=== PATIENT | female | born 1940 | race Caucasian/White ===

== ENCOUNTER → 2023-09-19 09:57 | Outpatient (REF) | payer MEDICARE, OTHER, SELFPAY | LOC: RCS 09:57 | PROVIDERS: ATTENDING PHYSICIAN Internal Medicine Cardiovascular Disease; FAMILY PHYSICIAN Student in an Organized Health Care Education/Training Program | DX: I35.1 Nonrheumatic aortic (valve) insufficiency (principal) | CPT/HCPCS: 93306 ==

== ENCOUNTER → 2024-02-25 16:50 | Outpatient (REF) | payer MEDICARE, OTHER, SELFPAY | LOC: WDC 16:50 | PROVIDERS: ATTENDING PHYSICIAN Obstetrics & Gynecology Gynecology; FAMILY PHYSICIAN Student in an Organized Health Care Education/Training Program | DX: Z12.31 Encounter for screening mammogram for malignant neoplasm of breast (principal) | CPT/HCPCS: 77063; 77067 ==

== ENCOUNTER 2024-09-07 04:55 | Inpatient (IN) | payer MEDICARE, OTHER, SELFPAY ==
[2024-09-06 21:23] VITALS: BP 111/73
[2024-09-06 22:00] LABS: Hematocrit 31.6 % (37.0-47.0); Hemoglobin 11.0 g/dL (12.0-16.0); Mean Corp Hgb Conc. 34.8 g/dL (33.0-37.0); Mean Corpuscular Volume 92.9 fL (81.0-99.0); Nucleated Red Blood Cells % 0 %; Platelet Count 362 10^3/uL (130-400); Red Cell Dist. Width 11.5 % (11.5-14.5)
[2024-09-06 22:16] LABS: ALT (SGPT) 21 U/L (0-35); AST (SGOT) 37 U/L (14-36); Albumin 3.2 g/dl (3.5-5.0); Alkaline Phosphatase 103 U/L (38-126); Blood Urea Nitrogen 25 mg/dl (7-17); Calcium 8.4 mg/dl (8.4-10.2); Carbon Dioxide 27 mmol/L (22-30); Chloride 96 mmol/L (98-107); Glucose 120 mg/dl (70-99); Lipase 76 U/L (23-300); Potassium 5.6 mmol/L (3.5-5.1); Sodium 125 mmol/L (135-145); Total Protein 5.9 g/dl (6.3-8.2); eGFR 40.80
[2024-09-06 22:28] LABS: Troponin I < 0.012 ng/ml
[2024-09-06 23:44] VITALS: BP 120/78
[2024-09-07] VITALS (15 sets, daily range): BP systolic 83–142; BP diastolic 61–82; BMI 26.1
[2024-09-07] MEDS: PEPCID 20 MG IV (00:50)
[2024-09-07] MEDS: NSS 1000 IV ×3 (00:50→22:16)
--- NOTE | 2024-09-07 01:13 | ED.GENMED ---
History of Present Illness
General
Chief Complaint: Abdominal Pain
Source: patient
Exam Limitations: none
Time Seen by Provider: 09/06/24 23:52
Nursing documentation reviewed up to this point in time: agreed with
History of Present Illness
History of Present Illness:
Patient is an 84-year-old female who presents to the emergency department with 3 weeks of abdominal discomfort. Patient states she has been dealing with vague upper abdominal pain as well as a bloating sensation over the past 3 weeks. She has had
very little appetite and has been eating/drinking very little. Patient states she feels that her abdomen is swollen. She was seen by her primary care provider who ordered a CT scan which was scheduled for tomorrow.
Patient states that earlier today she started to feel a heaviness in her left had a sharp pain in her left chest prompting visit to the emergency department
Patient denies any fever, chills, nausea, or vomiting. She denies any shortness of breath or dizziness.
Past History
Past History
ED Past Medical History: HTN and Hypercholesterolemia
ED Past Surgical History: None
Social History
Tobacco: Other
Drug: None
Personal:
Living: with family
Family History
Family History: Other (Nonsignificant)
Review of Systems
Review of Systems
Allergies reviewed?: Yes
All Other Systems: ROS reviewed and negative except as documented in HPI and ROS
Phy Exam
Physical Exam
Physical Exam:
Vitals: Patient's vital signs are stable. Afebrile
General: Patient is well appearing, no acute distress. Nontoxic appearing
Skin: Warm and dry, no rashes or lesions
Head: Normocephalic, atraumatic
Eyes: Sclera nonicteric.
Throat: Protecting airway
Neck: Normal ROM, no cervical spine tenderness, no meningismus
Cardiac: Regular rate and rhythm, no murmurs. No reproducible chest wall tenderness
Pulm: Normal respiratory effort, no wheezes, rales, rhonchi heard on exam
Abdomen: Mildly distended. Abdomen soft with mild discomfort in upper abdomen. No rebound tenderness or guarding focal tenderness McBurney's point. Negative Briones sign.
Extremities: No evidence of cyanosis or edema
Neuro: AAOx3. Grossly intact.
Psychiatric: Normal affect.
Course
Orders/Labs/Results
Orders:
Orders
09/06/24 21:26
Electrocardiogram (*1) Urgent
Reason for Study: Chest Pain
EKG- Treatment ONCE
09/06/24 21:50
Complete Blood Count/With Diff Urgent
Comprehensive Metabolic Panel Urgent
Lipase Urgent
Serum Osmolality Urgent
Troponin I Urgent
09/07/24 00:44
0.9% Sodium Chloride 1000 ml [Nss] 1,000 ml IV BOLUS
Famotidine [Pepcid] 20 mg IV NOW STA
09/07/24 00:45
Add On- LAB Urgent
Tests Added?: serum osmolality
CT Abd/pelvis W Iv Cont Urgent
Comment:
Reason For Exam: upper abdominal pain, bloating
CR Chest - 2 Views Urgent
Comment:
Reason For Exam: chest pain
09/07/24 00:46
Electrocardiogram (*1) Urgent
Reason for Study: Chest Pain
EKG- Treatment ONCE
09/07/24 00:54
Troponin I Urgent
09/07/24 02:15
Osmolality, Random Urine Urgent
Date Specimen was Collected: 09/07/24
Time Specimen was Collected: 02:12
Urinalysis Reflex To Culture Urgent
Date Specimen was Collected: 09/07/24
Time Specimen was Collected: 02:12
Urine Microscopic Reflex Cult Urgent
Urine Sodium Urgent
Date Specimen was Collected: 09/07/24
Time Specimen was Collected: 02:12
Abnormal Lab Results
09/06/24 09/07/24
21:50 02:15
RBC 3.40 L 10^6/uL
(4.20-5.40)
Hgb 11.0 L g/dL
(12.0-16.0)
Hct 31.6 L %
(37.0-47.0)
MCH 32.4 H pg
(27.0-31.0)
Absolute Lymphs (auto) 0.7 L 10^3/uL
(1.2-3.4)
Absolute Monos (auto) 0.7 H 10^3/uL
(0.1-0.6)
Neutrophils % 79.3 H %
(42.2-75.2)
Lymphocytes % 9.2 L %
(20.5-51.1)
Monocytes % 10.0 H %
(1.7-9.3)
Sodium 125 L mmol/L
(135-145)
Potassium 5.6 H mmol/L
(3.5-5.1)
Chloride 96 L mmol/L
(98-107)
BUN 25 H mg/dl
(7-17)
Creatinine 1.3 H mg/dL
(0.6-1.0)
Glucose 120 H mg/dl
(70-99)
Serum Osmolality 271 L mOsm/kg
(275-300)
AST 37 H U/L
(14-36)
Total Protein 5.9 L g/dl
(6.3-8.2)
Albumin 3.2 L g/dl
(3.5-5.0)
Urine Bacteria (Reflex) Few A
(Negative)
Urine Osmolality 278 L mOsm/kg
(300-900)
Urine Albumin (Reflex) 1+ A
(Neg - Trace)
09/06/24 21:50
09/06/24 21:50
Vital Signs
Initial and Last Documented VS:
Initial Vital Signs
Temp Pulse Resp BP Pulse Ox
99 F 90 20 111/73 95
09/06/24 21:23 09/06/24 21:23 09/06/24 21:23 09/06/24 21:23 09/06/24 21:23
Last Documented Vital Signs
Temp Pulse Resp BP Pulse Ox
99 F 105 18 128/78 95
09/06/24 21:23 09/07/24 02:00 09/07/24 02:11 09/07/24 02:00 09/07/24 02:45
MDM/Problems Addressed
Differential Diagnosis Includes:
Not limited to: Pancreatitis, gastritis, biliary colic, cholecystitis, malignancy, bowel obstruction, etc.
MDM/Problems Addressed:
84-year-old female presenting with 3 weeks of abdominal bloating and anorexia, now with chest pressure today. No fevers or vomiting. She does report very little p.o. intake over the past few weeks secondary to abdominal discomfort. No associated
shortness of breath. Vitals and physical exam as above. Labs obtained prior to my evaluation significant for mild anemia. Chemistry reveals acute hyponatremia with a sodium of 125 as well as hyperkalemia with a potassium of 5.6. Mild renal
insufficiency noted. Suspect likely secondary to poor p.o. intake test dehydration. Initial troponin undetectable. EKG reveals normal sinus rhythm without EKG changes consistent of acute hyperkalemia.
Patient with significant electrolyte imbalances likely secondary to dehydration/poor p.o. intake. Will give IV fluids. Will check sodium studies. Will trend troponin. Given abdominal discomfort�will obtain CT scan and reassess. Patient will
require admission.
Update: CT scan unfortunately shows findings consistent with peritoneal carcinomatosis. This likely explains abdominal discomfort and anorexia. No evidence of bowel obstruction. Unknown possible primary malignancy. She does have a history of
melanoma. Serial troponins negative x 2. Suspect chest pressure secondary to significant ascites in abdomen. Discussed with patient at length. Patient remain hemodynamically stable. She will require admission for further workup as well as
hydration/repletion of electrolytes.
Chronic conditions affecting care:
Hypertension
Acute Exacerbation and/or Progression of Chronic Illness:
N/A
*Radiology
Radiology exam reviewed: radiology read reviewed
*Pulse Oximetry
SaO2: 94
Oxygen Mode of Delivery: Room air
Patient hypoxic: no
*EKG
Interpreted by ED Provider?: Yes
EKG Intrepretation Date: 09/07/24
Interpretation: abnormal
Comparison EKG: changes noted
Heart Rate: 82
Rate: normal
Rhythm: sinus
[place]: normal axis
Interval: first degree heart block
QRS Pattern: low voltage
Ischemia: non-specific ST changes
*Soft Boarder Interpretation
Rate: normal
Interpretation: normal
Heart Rate: 92
Rhythm: sinus
*Critical Care Note
Total Time (30-74mins, 75-104mins- exclusive of procedures): Not Applicable
Patient Management
Discussion with other providers: Hospitalist and Radiologist (Case discussed with radiology)
Escalation/DeEscalation of care consider admission/obs:
Admit for electrolyte repletion, hydration, further workup of peritoneal carcinomatosis
ED Attending Note
-
Portions of this chart may have been created with voice recognition software.� Occasional wrong word or��sound alike� substitutions may have occurred due to the inherent limitations of voice recognition software.
Discharge Plan
Departure
Patient Disposition: Admit
Date of Disposition: 09/07/24
Time of Disposition: 03:38
Presentation/result/management discussed w/ accepting MD/DO: Hospitalist
Discharge Problem:
Acute hyponatremia, Hyperkalemia, Peritoneal carcinomatosis
Prescriptions:
No Action
tamsulosin 0.4 MG capsule
0.4 mg PO DAILY Qty: 7 0RF
tramadol 50 MG tablet
50 mg PO Q6HPRN PRN (Reason: Pain) Qty: 20 0RF
ondansetron 4 MG tablet,disintegrating
4 mg PO TIDPRN PRN (Reason: nausea) Qty: 12 0RF
Referrals:
Libertad Ho MD [Family Provider, Internal Medicine]
Interventions
Interventions:
*Risk Screen - Suicide Last Done: 09/06/24 21:23
*General Assessment Last Done: 09/06/24 21:23
*Neglect/Abuse Screening Last Done: 09/06/24 21:23
*ED- Fall Risk Assessment Last Done: 09/06/24 23:50
*ED COVID-19 Vaccine History Last Done: 09/06/24 23:50
TM-Ttdodn-Jwkmwxoaty Assessment Last Done: 09/06/24 23:50
Discharge Date and Time
Print Language: DANISH
[2024-09-07 01:38] LABS: Troponin I < 0.012 ng/ml
[2024-09-07 02:34] LABS: Urine Character Clear (Clear)
[2024-09-07 02:55] LABS: Urine Squamous Cell >30 /LPF (Few)
[2024-09-07 02:56] LABS: Urine Red Blood Cell None Seen /HPF (0-2)
--- NOTE | 2024-09-07 04:06 | HPS.HSE ---
Family Physician
-
Family Physician: Libertad Ho MD
Chief Complaint
-
Abdominal pain
History of Present Illness
This is a 84-year-old female with past medical history significant for hypertension, hyponatremia, hypokalemia, CKD 3, hyperlipidemia presenting to the emergency department with worsening abdominal pain over the last 3 weeks.
Patient reported that she has been doing fine up until about 3 weeks ago when after having a meal she suddenly have abdominal bloating and distention and she has not felt well since then. Symptoms has persisted up until the point today where she
could not take it anymore and she said coming to the emergency department. She denies vomiting. She denies diarrhea. She denies any fevers or chills. She denies any urinary symptoms. Patient denies pain with movement.
She reports that over the last several days she has had minimal p.o. intake. She has however continued to take antihypertensives including triamterene.
Patient reports remote history of skin melanoma which was found in the right upper extremity and left lower extremity. She had excision and clear borders. She has had routine follow-up showing no recurrence of disease. She denies any other prior
malignancy.
In the emergency department she was afebrile, blood pressure was 128/80 with a pulse of 100 and she was satting 95% on room air.
CBC was unremarkable. Electrolytes were notable for a sodium of 125, potassium of 5.6, BUN and creatinine were stable at 25 and 1.3 with a glucose of 120. LFTs were unremarkable. Urinalysis was negative. Urine osmolality was 278 with a urine
sodium of 30.
Exam ECG with sinus rhythm rate of [address] or T wave changes.
Findings compatible with peritoneal carcinomatosis, multiple peritoneal masses throughout the abdomen and pelvis, moderate amount of ascites, no bowel obstruction, no obstructive uropathy, trace right pleural effusion
Medical History
Past Medical History
Past Medical History: Reports Cancer (History of malignant melanoma), HTN, Hypercholesterolemia, Valvular Disease (Bicuspid aortic valve with valvular insufficiency,) and Other (Nephrolithiasis, history of hyponatremia, CKD stage IIIa)
Past Surgical History: Reports Orthopedic (Status post total right knee replacement, status post total left hip replacement, status post right hip replacement, status post left knee replacement) and Other (Hemorrhoidectomy)
Social History
Tobacco: Non-smoker
Alcohol: Occasional
Drug: None
Family History
Family History: Not pertinent
Allergies / Home Medications
Allergies reflects when Allergies were last updated in [facility].
Home Medications with original date entered in [facility]
Allergy/Medication List:
Allergies
Allergy/AdvReac Type Severity Reaction Status Date / Time
No Known Allergies Allergy Unverified 07/13/18 14:54
Home Medications
Simvastatin 20 MG 1 tablet in the evening Orally Once a day for 90 days Active
Losartan Potassium 100 MG 1 tablet Orally Once a Day for 90 days Nov, Active
Propranolol HCl 20 MG 1 tablet Orally Twice a day for 90 days Active
Valium 5 MG 1 tablet as needed Orally Once a day for 30 days May, Active
amLODIPine Besylate 2.5 MG 1 tablet Orally Once a day for 90 days Jul, Active
Triamterene 100 MG TAKE 1 CAPSULE BY MOUTH DAILY for 90 Active
Centrum Silver Ultra Womens NO SIG SUPPLIED Oral Active
Ezetimibe 10 MG 1 tablet Orally Once a Day for 90 days Active
Aspirin 81 81 MG 1 tablet Orally Every Other Day Active
Review of Systems
-
Constitutional: Reports No Symptoms
EENT: Reports No Symptoms
Respiratory: Reports No Symptoms
Cardiac: Reports No Symptoms
Abdomen/GI: Reports Abdominal Pain, Nausea and Vomiting
: Reports No Symptoms
Musculoskeletal: Reports No Symptoms
Skin: Reports No Symptoms
Neurological: Reports No Symptoms
Endocrine: Reports No Symptoms
Hematologic/Lymphatic: Reports No Symptoms
Psych: Reports No Symptoms
Physical Exam
Vital Signs
Vital Signs
Temp Pulse Resp BP Pulse Ox
99 F 105 18 128/78 95
09/06/24 21:23 09/07/24 02:00 09/07/24 02:11 09/07/24 02:00 09/07/24 02:45
Physical Exam
General: Well Developed, Well Nourished and No Apparent Distress
HEENT: NormoCephalic, Moist mucous membranes and Atraumatic
Respiratory: Clear
Cardiac: S1/S2 and Regular Rhythm; No Murmur or Rub
GI: Soft, Non Tender, Non Distended and Normal Bowel Sounds; No Organomegaly
Rectal: Deferred by Provider
Musculoskeletal: No Clubbing, No Cyanosis and No Edema
Skin: No Rash
Neuro: Nonfocal/grossly intact
Laboratory Results
-
09/06/24 21:50
09/06/24 21:50
Laboratory Results
Total Bilirubin 0.8 mg/dl (0.2-1.3) 09/06/24 21:50
AST 37 U/L (14-36) H 09/06/24 21:50
ALT 21 U/L (0-35) 09/06/24 21:50
Alkaline Phosphatase 103 U/L (38-126) 09/06/24 21:50
Troponin I < 0.012 ng/ml 09/07/24 00:54
Lipase 76 U/L (23-300) 09/06/24 21:50
Data Reviewed
-
CT Scan: Report Reviewed by me
Lab Data: Labs Reviewed by me
Old Records: Reviewed
Impression/Plan
-
IMPRESSION:
84-year-old female with past medical history of hypokalemia hypertension, SIADH, hyperlipidemia, remote history of skin melanoma, status post resection and no recurrence of disease over the last 10 years, last colonoscopy 3 year ago that was
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
PLAN:
Peritoneal carcinomatosis -multiple intra-abdominal lesions concerning for peritoneal carcinomatosis with moderate amount of ascites. No obvious mass effect. No small bowel obstruction. No urinary obstruction.
-admit to telemetry
- tissue sampling/biopsy of most accessible site: oncology consultation, IR consultation, given ascites will order diagnostic paracentesis with cytology for now
- markers with cea, ca19-9 ca 125, AFP
- npo for now
- IV fluids with NS, pain control and antiemetics
Hyponatremia - Multifactorial. Hx of SIADH, now with decreased po intake and ongoing use of triamterene. Urine studies c/w siadh but patient hx c/w hypovolemia
- s/p 1 L NS, continue IV NS at 100 ml/hr for now
- repeat Na in 6 hours
- free water restriction while npo to < 1 L / day
- orthostatics
- check cortisol given hyperkalemia
- nephrology consult
Hyperkalemia - On triamterene, dehydration
- hold triamterene
- IV fluids as above
- low K diet
HTN -
- continue her amlodipine, propranolol
- holding triamterene
- continue losartan
DVT PPX - lovenox sq
Code status - full code
[2024-09-07] MEDS: ROXICODONE 5 MG PO (05:48)
[2024-09-07 09:27] LABS: Hematocrit 29.9 % (37.0-47.0); Hemoglobin 10.2 g/dL (12.0-16.0); Mean Corp Hgb Conc. 34.1 g/dL (33.0-37.0); Mean Corpuscular Volume 92.9 fL (81.0-99.0); Platelet Count 305 10^3/uL (130-400); Red Cell Dist. Width 11.4 % (11.5-14.5)
--- NOTE | 2024-09-07 09:29 | CON.ONC ---
Consultation
-
Date Consultation Requested: 09/07/24
Date Consultation Performed: 09/07/24
Requesting Provider: Dr. Torres Villafana
Performing Provider: Dr. Jaz Dial
Reason for Consultation: peritoneal carcinomatosis
Impression
Impression
p/w ab pain and distention
peritoneal carcinomatosis, multiple peritoneal masses (largest 8 x 5 x 6 cm), ascites, small bilateral pleural effusion
pancreatic cyst
hyponatremia
CKD
normocytic anemia Hgb ~11g/dL
Plan
Plan
agree with consult IR for biopsy of peritoneal mass and diagnostic and therapeutic paracentesis
consider MRI abdomen to further evaluate pancreatic cyst
check tumor markers
eventual CT chest with IVC for staging vs OP PET
next steps based on cytology
Patient History
History of Present Illness
84yo F presented with abdominal pain. She reports increasing abdominal distention with associated discomfort and pain over the past 3 weeks. She denies any N/V/D/C, fever, or sick contacts. Her abdominal discomfort has affected her PO intake, which
has been very little over the past week due to early satiety. She denies any GI//or [employer] bleeding. Her initial work up showed WBC 7.3, Hgb 11, platelet count 362,000, Na 125, potassium 5.6, BUN 25, creatinine 1.3, calcium 8.4 with no significant
abnormalities in LFTs. CT ab/pelvis showed heterogeneous soft tissue masses throughout the abdomen and pelvis consistent with peritoneal metastasis, largest 8 x 5 x 6 cm, pancreatic cyst in the pancreatic head measuring 1.6 cm, and mild
abdominopelvic ascites. CXR showed b/l pleural effusions.
She is up to date with mammogram, last February 2024 that showed no evidence of malignancy. Her last colonoscopy was February 2021 with history of hyperplastic polyps. She has a history of melanoma in situ that was resected on her RUE and LLE. She
tells me that she had 'clear borders' on resection and no evidence of recurrence on subsequent dermatology follow up every 6 months.
Afebrile, no hypoxia or hypotension
Past-Medical/Surgical History
PMH osteopenia, HTN, CKD3, HLD, Bicuspid aortic valve with valvular insufficiency, nephrolithiasis, melanoma in situ
PSH R TKR, L TKR, L THR, R THR, hemorrhoidectomy
Social non-smoker, denies significant ETOH. Denies recreational drug use. Retired. Lives with
Family mother with metastatic melanoma in her 90s, father with prostate cancer
Patient Medication
�Medication �Instructions �Recorded �Confirmed �Last Taken �Type
ondansetron 4 mg disintegrating 4 mg PO TIDPRN PRN nausea #12 tabs 11/19/14 Unknown Rx
tablet
tamsulosin 0.4 mg capsule 0.4 mg PO DAILY #7 caps 11/19/14 Unknown Rx
tramadol 50 mg tablet 50 mg PO Q6HPRN PRN Pain #20 tabs 11/19/14 Unknown Rx
Active Medications
Generic Name Dose Route Start Last Admin
Trade Name Freq PRN Reason Stop Dose Admin
Acetaminophen 650 mg 09/07/24 08:24
Acetaminophen 325 Mg Tablet PO 10/05/24 08:23
Q4HPRN PRN
mild pain/MCKEON/temp> 100.4F
Amlodipine Besylate 2.5 mg 09/07/24 08:24
Amlodipine 2.5 Mg Tablet PO 10/05/24 08:23
DAILY LISA
Aspirin 81 mg 09/07/24 08:24
Aspirin 81 Mg (Enteric Coated) Tablet PO 10/05/24 08:23
DAILY LISA
Bisacodyl 10 mg 09/07/24 08:24
Bisacodyl 10 Mg Rectal Suppository RECTAL 10/05/24 08:23
[id number] PRN
constipation
Enoxaparin Sodium 40 mg 09/07/24 18:00
Enoxaparin Sodium 40 Mg/0.4 Ml Syringe SC 10/05/24 17:59
QPM LISA
Hydromorphone HCl 0.5 mg 09/07/24 08:24
Hydromorphone 0.5 Mg/0.5 Ml Syringe IV 09/21/24 08:23
Q4HPRN PRN
severe pain
Sodium Chloride 1,000 mls @ 100 mls/hr 09/07/24 08:24
Nss IV
.Q10H LISA
Losartan Potassium 100 mg 09/08/24 08:00
Losartan 100 Mg Tablet PO 10/06/24 07:59
DAILY LISA
Ondansetron HCl 4 mg 09/07/24 08:24
Ondansetron 4 Mg/2 Ml Vial IV 10/05/24 08:23
Q6HPRN PRN
nausea and vomiting
Oxycodone HCl 5 mg 09/07/24 05:39 09/07/24 05:48
Oxycodone 5 Mg Regular Release Tablet PO 09/21/24 05:38 5 mg
Q4HPRN PRN Administration
moderate pain
Propranolol HCl 20 mg 09/07/24 08:24
Propranolol 20 Mg Regular Release Tablet PO 10/05/24 08:23
BID LISA
Sodium Chloride 0 flush 09/07/24 09:00
Sodium Chloride 0.9% (Flush) Syringe IV 10/05/24 08:59
PER PROTOCOL LISA
Review of Systems
-
ROS is notable for HPI, otherwise negative
Physical Exam
-
General: No Apparent Distress
HEENT: Moist Mucous Membranes; Negative Jaundice
Cardiology: Normal Sinus Rhythm
Pulmonary: Clear
GI: Soft and Distended
Extremities: Pulses Present; Negative Edema
Neurology: Non Focal
Skin: Warm
Hematologic / Lymphatic: No Lymphadenopathy
Psych: Calm
Labs
Lab Results
WBC 7.0 10^3/uL (4.8-10.8) 09/07/24 09:17
RBC 3.22 10^6/uL (4.20-5.40) L 09/07/24 09:17
Hgb 10.2 g/dL (12.0-16.0) L 09/07/24 09:17
Hct 29.9 % (37.0-47.0) L 09/07/24 09:17
MCV 92.9 fL (81.0-99.0) 09/07/24 09:17
MCH 31.7 pg (27.0-31.0) H 09/07/24 09:17
MCHC 34.1 g/dL (33.0-37.0) 09/07/24 09:17
RDW 11.4 % (11.5-14.5) L 09/07/24 09:17
Plt Count 305 10^3/uL (130-400) 09/07/24 09:17
MPV 8.7 fL (7.4-10.4) 09/07/24 09:17
Abs Immat Gran (auto) 0.0 10^3/uL (0-0.05) 09/06/24 21:50
Absolute Neuts (auto) 5.8 10^3/uL (1.4-6.5) 09/06/24 21:50
Absolute Lymphs (auto) 0.7 10^3/uL (1.2-3.4) L 09/06/24 21:50
Absolute Monos (auto) 0.7 10^3/uL (0.1-0.6) H 09/06/24 21:50
Absolute Eos (auto) 0.1 10^3/uL (0-0.7) 09/06/24 21:50
Absolute Basos (auto) 0.0 10^3/uL (0-0.2) 09/06/24 21:50
Immature Gran % 0.3 % (0-0.5) 09/06/24 21:50
Neutrophils % 79.3 % (42.2-75.2) H 09/06/24 21:50
Lymphocytes % 9.2 % (20.5-51.1) L 09/06/24 21:50
Monocytes % 10.0 % (1.7-9.3) H 09/06/24 21:50
Eosinophils % 0.8 % (0-6) 09/06/24 21:50
Basophils % 0.4 % (0-2) 09/06/24 21:50
Creatinine 1.3 mg/dL (0.6-1.0) H 09/06/24 21:50
Vital Signs
Vital Signs
Temp Pulse Resp BP Pulse Ox
98.1 F 93 18 132/79 94
09/07/24 08:30 09/07/24 08:30 09/07/24 08:30 09/07/24 08:30 09/07/24 08:30
[2024-09-07 09:51] LABS: Blood Urea Nitrogen 20 mg/dl (7-17); Calcium 8.3 mg/dl (8.4-10.2); Carbon Dioxide 21 mmol/L (22-30); Chloride 101 mmol/L (98-107); Estimated Creatinine Clearance 33 ml/min; Glucose 114 mg/dl (70-99); Magnesium 2.2 mg/dl (1.6-2.3); Potassium 5.2 mmol/L (3.5-5.1); Sodium 128 mmol/L (135-145); eGFR 44.91
[2024-09-07] MEDS: ZOFRAN 4 MG IV ×2 (10:04→18:21)
[2024-09-07] MEDS: FLUSH (NSS) 1 FLUSH IV ×2 (10:04→18:21)
[2024-09-07] MEDS: ASPIR LOW (ENTERIC COATED) 81 MG PO (10:05)
[2024-09-07] MEDS: NORVASC 2.5 MG PO (10:05)
[2024-09-07] MEDS: INDERAL 20 MG PO ×2 (10:05→20:04)
--- NOTE | 2024-09-07 10:30 | PTCARENOTE ---
Received pt from ER via stretcher, accompanied by ER staff. Pt AAO x3, MALDONADO; weak, able to transfer to bed with minimal assistance. Fall prec initiated. VSS. Place don telemetry:NSR. On room air- pulse ox 94%, no SOB. Abd large/soft, pt c/o 'I
feel bloated', (+) mild nausea. NPO. Pt voided in BR upon arrival to unit. Afebrile; pale; skin intact. Oriented to [facility]. pt currently of funit for IR procedure. Will continue to monitor.
--- NOTE | 2024-09-07 11:22 | PTCARENOTE ---
Pt returned from IR s/p paracentesis via stretcher, accompanied by volunteer. Pt AAO x3, MALDONADO; able to transfer to bed with assistance x1. VSS. Rt lower abd bandaid D/I. Resting in bed at present. Will continue to monitor.
--- NOTE | 2024-09-07 11:43 | CM ---
Chart reviewed. Met with patient at bedside. Lives in 2 story home. First floor has bedroom and bathroom.Lives with who has memory deficits and requested resources to bring help into the home,i.e. home health aid. Has had outpatient PT in
the past post hip and knee replacements. Patient doesn't recall the name of the agency. NO DME at this time. She is the primary caregiver for .
PCP: Noemi Ho
Pharmacy: [facility]
Insurance: Medicare with [employer]
DRug plan: [facility]
Plan: Home. No needs at this time. Will follow for discharge needs. Provided Home caregiver resources for
--- NOTE | 2024-09-07 12:16 | W.PN.HOSP.TC ---
Today's Communication/Plan
-
Pending paracentesis.
Cytology.
Oncology consult
Assessment / Plan
Assessment / Plan
Impression:
84-year-old female with past medical history of hypokalemia hypertension, SIADH, hyperlipidemia, remote history of skin melanoma, status post resection and no recurrence of disease over the last 10 years, last colonoscopy 3 year ago that was
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
Assessment/plan:
Peritoneal carcinomatosis -multiple intra-abdominal lesions concerning for peritoneal carcinomatosis with moderate amount of ascites.
No obvious mass effect. No small bowel obstruction. No urinary obstruction.
-admited to telemetry
- tissue sampling/biopsy of most accessible site: oncology consultation, IR consultation,
ordered paracentesis with cytology for now
- tumer markers with cea, ca19-9 ca 125, AFP
- IV fluids with NS, pain control and antiemetics
Hyponatremia - Multifactorial. Hx of SIADH, now with decreased po intake and ongoing use of triamterene. Urine studies c/w siadh but patient hx c/w hypovolemia
- s/p 1 L NS, continue IV NS at 100 ml/hr for now
- repeat Na in 6 hours
- free water restriction while npo to < 1 L / day
- orthostatics
- check cortisol given hyperkalemia
- nephrology consulted
Hyperkalemia - On triamterene, dehydration
- hold triamterene
- IV fluids as above
- low K diet
HTN -
- continue her amlodipine, propranolol
- holding triamterene
- continue losartan
CODE STATUS: Full code
DVT prophylaxis: Lovenox
Diet: regular
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
Disposition: Pending paracentesis and fluid biopsy
Total time spent on today's encounter was 65 minutes which included time spent in counseling the patient/family regarding diagnosis and treatment plan as listed above, goals of care, and symptom management. Case was discussed with nursing staff,
specialists, and care coordinators/case management. All labs and imaging personally reviewed by me. Remainder the time spent in detailed review of previous records, lab data, imaging, and other medical provider documentation.
Anticipated Discharge: > 48 hours
Subjective/Interval History
-
Date of Service: September 07, 2024
Patient seen and examined at bedside, overall patient not feeling well, with abdominal discomfort and nausea.
Plan for paracentesis today, still pending tumor markers.
Objective Data
-
Labs:
Laboratory Results
09/07/24
09:17
WBC 7.0
Hgb 10.2 L
Hct 29.9 L
Plt Count 305
Sodium 128 L
Potassium 5.2 H
Chloride 101
Carbon Dioxide 21 L
BUN 20 H
Creatinine 1.2 H
Glucose 114 H
Calcium 8.3 L
Vital Signs:
Vital Signs
Temp Pulse Resp BP Pulse Ox
97.3 F 77 16 139/70 94
09/07/24 11:30 09/07/24 11:30 09/07/24 11:30 09/07/24 11:30 09/07/24 11:30
Physical Exam
-
General: Well Developed, Well Nourished, No Apparent Distress and Comfortable
HEENT: Normocephalic, Atraumatic, Moist Mucous Membranes, No Ptosis, PERRLA and Nose Appears Normal
Respiratory: Rales and Non Labored Respirations
Cardiac: Regular Rhythm and S1/S2
Breast: Deferred by me
GI: Soft, Normal Bowel Sounds, Tender and Distended
Genito-urinary: No Costovertebral Tender
Musculoskeletal: No Clubbing, No Cyanosis and No Edema
Skin: Warm
Neuro: Awake, Alert, Oriented, AO x 3 and No Motor Deficits
Psych: Calm
Data Reviewed
-
Diagnostic Radiology: Image personally visualized and interpreted and Report Reviewed by me
CT Scan: Image personally visualized and interpreted and Report Reviewed by me
Ultrasound: Image personally visualized and interpreted and Report Reviewed by me
MRI: Image personally visualized and interpreted and Report Reviewed by me
Medical Tests (Nuc Med, Echo etc): Image personally visualized and interpreted and Report Reviewed by me
Labs: Labs Reviewed by me
Old Records: Reviewed
--- NOTE | 2024-09-07 13:06 | W.CON.NEPH ---
Consultation
-
Date/Time Consultation Requested: September 06, 2024
Date/Time Consultation Performed: September 07, 2024 at 11 AM
Requesting Provider: Dr. Moralez
Performing Provider: Dr. Bautista
Reason for Consultation: Acute on chronic kidney disease and hyponatremia
Medical History
-
Chief Complaint: Acute on chronic kidney disease and hyponatremia
History of Present Illness:
84-year-old female with past medical history of hypokalemia hypertension, SIADH, hyperlipidemia, remote history of skin melanoma, status post resection and no recurrence of disease over the last 10 years, last colonoscopy 3 year ago that was
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
Consult for hyponatremia chronic at 128 as well as mild acute kidney injury
Past Medical History
Hypokalemia hypertension, SIADH, hyperlipidemia, remote history of skin melanoma, status post resection
Social History
Tobacco: Non-Smoker
Alcohol: None
Family History
Family History: Not Pertinent
Allergies / Home Medications
Allergy/AdvReac Type Severity Reaction Status Date / Time
No Known Allergies Allergy Unverified 07/13/18 14:54
�Medication �Instructions �Recorded �Confirmed �Type
ondansetron 4 mg disintegrating 4 mg PO TIDPRN PRN nausea #12 tabs 11/19/14 09/07/24 Rx
tablet
Amlodipine 2.5 mg PO DAILY 09/07/24 09/07/24 History
Centrum 1 tab PO DAILY 09/07/24 09/07/24 History
Estring 2 mg intrauterine [id number] 09/07/24 09/07/24 History
Inderal 20 mg PO BID 09/07/24 09/07/24 History
Zetia 10 mg PO DAILY 09/07/24 09/07/24 History
aspirin Q48H 09/07/24 History
losartan 100 mg PO DAILY 09/07/24 09/07/24 History
simvastatin 20 mg tablet 20 mg PO DAILY 09/07/24 09/07/24 History
triamterene 100 mg capsule 100 mg PO DAILY 09/07/24 09/07/24 History
(Dyrenium)
Review of Systems
-
No chest pain or shortness of breath decreased appetite
All other systems: Negative unless noted
Physical Exam
Vital Signs
Vital Signs
Temp Pulse Resp BP Pulse Ox
97.3 F 77 16 139/70 94
09/07/24 11:30 09/07/24 11:30 09/07/24 11:30 09/07/24 11:30 09/07/24 11:30
Lab Results
WBC 7.0 10^3/uL (4.8-10.8) 09/07/24 09:17
RBC 3.22 10^6/uL (4.20-5.40) L 09/07/24 09:17
Hgb 10.2 g/dL (12.0-16.0) L 09/07/24 09:17
Hct 29.9 % (37.0-47.0) L 09/07/24 09:17
Plt Count 305 10^3/uL (130-400) 09/07/24 09:17
Sodium 128 mmol/L (135-145) L 09/07/24 09:17
Potassium 5.2 mmol/L (3.5-5.1) H 09/07/24 09:17
Chloride 101 mmol/L (98-107) 09/07/24 09:17
Carbon Dioxide 21 mmol/L (22-30) L 09/07/24 09:17
BUN 20 mg/dl (7-17) H 09/07/24 09:17
Creatinine 1.2 mg/dL (0.6-1.0) H 09/07/24 09:17
eGFR 44.91 09/07/24 09:17
Glucose 114 mg/dl (70-99) H 09/07/24 09:17
Calcium 8.3 mg/dl (8.4-10.2) L 09/07/24 09:17
Albumin 3.2 g/dl (3.5-5.0) L 09/06/24 21:50
Physical Exam
General no acute distress
HEENT no cephalic atraumatic extraocular muscle intact no scleral icterus no JVD neck supple
lungs clear to auscultation bilateral
heart regular S1-S2 positive
abdomen soft nontender positive bowel sounds
extremities no edema pulses present bilateral
Neurologically nonfocal alert and oriented x 3
Skin no lesions no abrasions no petechiae
Psych normal affect no bizarre behavior
Data Reviewed
-
Radiology: Image Personally Visualized and interpreted
CT Scan: Image Personally Visualized and interpreted
Assessment/Plan
-
84-year-old female with past medical history of hypokalemia hypertension, SIADH, hyperlipidemia, remote history of skin melanoma, status post resection and no recurrence of disease over the last 10 years, last colonoscopy 3 year ago that was
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
Impression
Acute kidney injury presenting creatinine 1.3.
CKD 3A baseline previously followed with
Hyponatremia 125 on admission.
SIADH? Urine sodium 36 with a urine Osmo 278
peritoneal carcinomatosis, multiple peritoneal masses (largest 8 x 5 x 6 cm), ascites, small bilateral pleural effusion
Plan.
Continue normal saline
Monitor urine output
Increase p.o. intake solute
Pending biopsy peritoneal mass
Improving with volume
A.m. labs
[2024-09-07 13:47] LABS: Body Fluid Second Tech ASW
--- NOTE | 2024-09-07 16:45 | PTCARENOTE ---
Pt resting in bed at present. VSS. Telemetry:NSR. On room air- pulseox 93%. Pt on regular diet, currently taking only liquids d/t mild nausea. Voiding in BR without difficulty. IVF's NSS @ 100 ml/hr infusing via Lt forearm site without sx of
infiltration. Will continue to monitor.
[2024-09-07] MEDS: LOVENOX SC (17:37)
--- NOTE | 2024-09-07 17:41 | PTCARENOTE ---
Reviewed purpose of Lovenox in preventing blood clot formation; pt ambulatory in room, refuses Lovenox SC; Dr. Moralez notified.
--- NOTE | 2024-09-08 02:39 | DOWNTIME ---
There was a [employer] Downtime on 09/08/2024 from 0100 to 09/08/2024 at 0220. Downtime documentation of patient's care, including medication administrations, has been reconciled in the electronic record per guidelines. Refer to the
patient's paper chart under the miscellaneous tab to see printed paper medication records and downtime forms.
[2024-09-08 03:27] VITALS: BP 101/51
[2024-09-08 07:53] LABS: Hematocrit 25.4 % (37.0-47.0); Hemoglobin 8.6 g/dL (12.0-16.0); Mean Corp Hgb Conc. 33.9 g/dL (33.0-37.0); Mean Corpuscular Volume 93.7 fL (81.0-99.0); Platelet Count 295 10^3/uL (130-400); Red Cell Dist. Width 11.5 % (11.5-14.5)
[2024-09-08 07:54] VITALS: BP 125/73
[2024-09-08 08:11] LABS: Blood Urea Nitrogen 20 mg/dl (7-17); Calcium 7.7 mg/dl (8.4-10.2); Carbon Dioxide 22 mmol/L (22-30); Chloride 103 mmol/L (98-107); Estimated Creatinine Clearance 36 ml/min; Glucose 88 mg/dl (70-99); Potassium 4.9 mmol/L (3.5-5.1); Sodium 128 mmol/L (135-145); eGFR 49.86
[2024-09-08] MEDS: INDERAL 20 MG PO ×2 (08:12→20:19)
[2024-09-08] MEDS: COZAAR 100 MG PO (08:12)
[2024-09-08] MEDS: NORVASC 2.5 MG PO (08:12)
[2024-09-08] MEDS: ASPIR LOW (ENTERIC COATED) 81 MG PO (08:12)
--- NOTE | 2024-09-08 08:38 | W.PN.ONC2 ---
Today's Communication / Plan
-
follow for cytology
Impression
Impression
p/w ab pain and distention
peritoneal carcinomatosis, multiple peritoneal masses (largest 8 x 5 x 6 cm), ascites, small bilateral pleural effusion
pancreatic cyst
hyponatremia
CKD
normocytic anemia Hgb ~11g/dL
Plan
Plan
consider biopsy of peritoneal mass if paracentesis is non-diagnostic or if additional tissue is needed for specials
f/u tumor markers
eventual CT chest with IVC for staging vs OP PET
next steps based on cytology
Subjective/Objective
Subjective
no new complaints
improved pain and nausea s/p paracentesis yesterday
Vital Signs:
Vital Signs
Temp Pulse Resp BP Pulse Ox
97.9 F 83 16 125/73 94
09/08/24 07:54 09/08/24 07:54 09/08/24 07:54 09/08/24 07:54 09/08/24 07:54
Lab Results:
Laboratory Data
WBC 5.7 10^3/uL (4.8-10.8) 09/08/24 06:50
Hgb 8.6 g/dL (12.0-16.0) L 09/08/24 06:50
Plt Count 295 10^3/uL (130-400) 09/08/24 06:50
eGFR 49.86 09/08/24 06:50
Physical Exam
HEENT: Moist Mucous Membranes; No Jaundice
Cardiology: Normal Sinus Rhythm
GI: Soft and Distended
Extremities: Pulses Present; No Edema
Neuro: Non Focal
Orders
Orders
Orders From Last 24 Hours
09/08/24 06:50
Ferritin IN AM
[2024-09-08 08:40] LABS: CEA 1.55 ng/ml
[2024-09-08 08:46] LABS: Ferritin 193.0 ng/ml (11.1-264.0)
[2024-09-08] MEDS: MIRALAX 17 GRAMS PO (09:02)
[2024-09-08] MEDS: NSS 1000 IV (09:06)
[2024-09-08 11:05] LABS: AFP Male/Tumor Marker 7.87 ng/ml
[2024-09-08 11:17] VITALS: BP 111/53
[2024-09-08 12:32] LABS: CA 125 2270 U/mL (0-35)
--- NOTE | 2024-09-08 13:08 | W.PN.NEPH.PH ---
Today's Communication / Plan
-
Discontinue IV fluid
Assessment/Plan
-
84-year-old female with past medical history of hypokalemia hypertension, SIADH, hyperlipidemia, remote history of skin melanoma, status post resection and no recurrence of disease over the last 10 years, last colonoscopy 3 year ago that was
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
Impression
Acute kidney injury presenting creatinine 1.3.
CKD 3A baseline previously followed with
Hyponatremia 125 on admission.
SIADH? Urine sodium 36 with a urine Osmo 278
peritoneal carcinomatosis, multiple peritoneal masses (largest 8 x 5 x 6 cm), ascites, small bilateral pleural effusion
Plan.
Monitor urine output
Increase p.o. intake solute
Pending biopsy peritoneal mass
Status post paracentesis 850 cc
Discontinue IV fluids with increasing abdominal distention
Creatinine down to 1.1 sodium at 128
A.m. labs
-
-
Date of Service: September 08, 2024
CC / HPI / ROS
-
Chief Complaint:
History of Present Illness:
Acute kidney injury and hyponatremia with abdominal distention
Review of Systems:
Abdominal distention
No chest pain or shortness of breath
Labs
-
Labs:
WBC 5.7 10^3/uL (4.8-10.8) 09/08/24 06:50
RBC 2.71 10^6/uL (4.20-5.40) L 09/08/24 06:50
Hgb 8.6 g/dL (12.0-16.0) L 09/08/24 06:50
Hct 25.4 % (37.0-47.0) L 09/08/24 06:50
Plt Count 295 10^3/uL (130-400) 09/08/24 06:50
Sodium 128 mmol/L (135-145) L 09/08/24 06:50
Potassium 4.9 mmol/L (3.5-5.1) 09/08/24 06:50
Chloride 103 mmol/L (98-107) 09/08/24 06:50
Carbon Dioxide 22 mmol/L (22-30) 09/08/24 06:50
BUN 20 mg/dl (7-17) H 09/08/24 06:50
Creatinine 1.1 mg/dL (0.6-1.0) H 09/08/24 06:50
eGFR 49.86 09/08/24 06:50
Glucose 88 mg/dl (70-99) 09/08/24 06:50
Calcium 7.7 mg/dl (8.4-10.2) L 09/08/24 06:50
Albumin 3.2 g/dl (3.5-5.0) L 09/06/24 21:50
Physical Exam
-
Vital Signs:
Vital Signs
Temp Pulse Resp BP Pulse Ox
97.7 F 74 16 111/53 93
09/08/24 11:17 09/08/24 11:17 09/08/24 11:17 09/08/24 11:17 09/08/24 11:17
Respiratory:: Bilateral: Coarse
Lung Excursion:: Normal
Abdomen:: Distended
Bowel Sounds:: Decreased
Extremity Edema:: None: Bilateral:
[2024-09-08] MEDS: DULCOLAX 10 MG RECTAL (13:32)
--- NOTE | 2024-09-08 14:14 | W.PN.HOSP.TC ---
Today's Communication/Plan
-
Pending cytology result
Assessment / Plan
Assessment / Plan
Impression:
84-year-old female with past medical history of hypokalemia hypertension, SIADH, hyperlipidemia, remote history of skin melanoma, status post resection and no recurrence of disease over the last 10 years, last colonoscopy 3 year ago that was
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
Assessment/plan:
Peritoneal carcinomatosis -multiple intra-abdominal lesions concerning for peritoneal carcinomatosis with moderate amount of ascites.
No obvious mass effect. No small bowel obstruction. No urinary obstruction.
-admited to telemetry
- tissue sampling/biopsy of most accessible site: oncology consultation, IR consultation,
ordered paracentesis with cytology for now
- tumer markers with cea, ca19-9 ca 125, AFP
- IV fluids with NS, pain control and antiemetics
Hyponatremia - Multifactorial. Hx of SIADH, now with decreased po intake and ongoing use of triamterene. Urine studies c/w siadh but patient hx c/w hypovolemia
-Appreciate nephrology input
Hyperkalemia - On triamterene, dehydration
- hold triamterene
-Improved
- low K diet
HTN -
- continue her amlodipine, propranolol
- holding triamterene
- continue losartan
CODE STATUS: Full code
DVT prophylaxis: Lovenox
Diet: regular
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
Disposition: Pending paracentesis and fluid biopsy
Total time spent on today's encounter was 65 minutes which included time spent in counseling the patient/family regarding diagnosis and treatment plan as listed above, goals of care, and symptom management. Case was discussed with nursing staff,
specialists, and care coordinators/case management. All labs and imaging personally reviewed by me. Remainder the time spent in detailed review of previous records, lab data, imaging, and other medical provider documentation.
Anticipated Discharge: 24 - 48 hours
Subjective/Interval History
-
Date of Service: September 08, 2024
Patient seen and examined at bedside, denies any chest pain or shortness of breath, patient was eating in the morning with no abdominal pain, no nausea, no vomiting, was complaining of constipation.
Oxycodone discontinued, later in the day she had fullness and abdominal discomfort.
Objective Data
-
Labs:
Laboratory Results
09/08/24
06:50
WBC 5.7
Hgb 8.6 L
Hct 25.4 L
Plt Count 295
Sodium 128 L
Potassium 4.9
Chloride 103
Carbon Dioxide 22
BUN 20 H
Creatinine 1.1 H
Glucose 88
Calcium 7.7 L
Vital Signs:
Vital Signs
Temp Pulse Resp BP Pulse Ox
97.7 F 74 16 111/53 93
09/08/24 11:17 09/08/24 11:17 09/08/24 11:17 09/08/24 11:17 09/08/24 11:17
I&O
09/07/24 09/08/24 09/09/24
06:59 06:59 06:59
Intake Total 849 / 849
Balance 849 / 849
Physical Exam
-
General: Well Developed, Well Nourished, No Apparent Distress and Comfortable
HEENT: Normocephalic, Atraumatic, Moist Mucous Membranes, No Ptosis, PERRLA and Nose Appears Normal
Respiratory: Rales and Non Labored Respirations
Cardiac: Regular Rhythm and S1/S2
Breast: Deferred by me
GI: Soft, Normal Bowel Sounds, Tender and Distended
Genito-urinary: No Costovertebral Tender
Musculoskeletal: No Clubbing, No Cyanosis and No Edema
Skin: Warm
Neuro: Awake, Alert, Oriented, AO x 3 and No Motor Deficits
Psych: Calm
Data Reviewed
-
Diagnostic Radiology: Image personally visualized and interpreted and Report Reviewed by me
CT Scan: Image personally visualized and interpreted and Report Reviewed by me
Ultrasound: Image personally visualized and interpreted and Report Reviewed by me
MRI: Image personally visualized and interpreted and Report Reviewed by me
Medical Tests (Nuc Med, Echo etc): Image personally visualized and interpreted and Report Reviewed by me
Labs: Labs Reviewed by me
Old Records: Reviewed
[2024-09-08 15:14] VITALS: BP 121/58
[2024-09-08] MEDS: LOVENOX 40 MG SC (17:36)
[2024-09-08 19:55] VITALS: BP 135/69
[2024-09-08 23:49] VITALS: BP 114/63
[2024-09-09 03:40] VITALS: BP 112/60
[2024-09-09 07:20] VITALS: BP 127/70
--- NOTE | 2024-09-09 07:44 | W.PN.ONC2 ---
Today's Communication / Plan
-
As above, if cytology confirms primary peritoneal/ovarian cancer, discharge home with close outpatient follow-up.
If cytology nondiagnostic, please arrange for biopsy of peritoneal nodule with discharge shortly thereafter. At this point continued inpatient hospitalization is likely unnecessary particularly if she is try to get home to take care of her ailing
Impression
Impression
peritoneal carcinomatosis, multiple peritoneal masses (largest 8 x 5 x 6 cm), ascites, small bilateral pleural effusion
pancreatic cyst
hyponatremia
CKD
normocytic anemia Hgb ~11g/dL
Plan
Plan
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
Await cytology. Proceed with biopsy of peritoneal mass if cytology nondiagnostic.
Hopefully try to get this done today as patient is hoping to be discharged and I see no reason to keep her other than the diagnostic workup.
So far all other tumor markers are negative except CA19. [address] chest with IVC for staging vs OP PET
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
Dr. Youngblood on vacation this week but if patient discharged, schedule follow-up with [facility] medical oncology and we can coordinate follow-up with [facility] [employer] oncologist.
[facility] office aware that patient requires follow-up.
Subjective/Objective
Chief Complaint
ACS Oncology F/U
Subjective
Patient feels well and offers no complaints. She would like to go home as her (retired MD) has some memory loss / dementia and she feels like she is just getting weaker sitting here. Cytology report is still pending.
Vital Signs:
Vital Signs
Temp Pulse Resp BP Pulse Ox
98.2 F 79 16 112/60 94
09/09/24 03:40 09/09/24 03:40 09/09/24 03:40 09/09/24 03:40 09/09/24 03:40
Lab Results:
Laboratory Data
WBC 5.7 10^3/uL (4.8-10.8) 09/08/24 06:50
Hgb 8.6 g/dL (12.0-16.0) L 09/08/24 06:50
Plt Count 295 10^3/uL (130-400) 09/08/24 06:50
eGFR 49.86 09/08/24 06:50
Physical Exam
HEENT: No Jaundice
Cardiology: S1 and S2
Pulmonary: Clear
GI: Soft
Extremities: No C/C/E
[2024-09-09 07:58] LABS: Hematocrit 26.4 % (37.0-47.0); Hemoglobin 9.3 g/dL (12.0-16.0); Mean Corp Hgb Conc. 35.2 g/dL (33.0-37.0); Mean Corpuscular Volume 90.1 fL (81.0-99.0); Platelet Count 283 10^3/uL (130-400); Red Cell Dist. Width 11.5 % (11.5-14.5)
[2024-09-09] MEDS: COZAAR 100 MG PO (08:16)
[2024-09-09] MEDS: ASPIR LOW (ENTERIC COATED) 81 MG PO (08:16)
[2024-09-09] MEDS: INDERAL 20 MG PO (08:16)
[2024-09-09] MEDS: NORVASC 2.5 MG PO (08:16)
[2024-09-09 08:40] LABS: Blood Urea Nitrogen 22 mg/dl (7-17); Calcium 8.0 mg/dl (8.4-10.2); Carbon Dioxide 21 mmol/L (22-30); Chloride 102 mmol/L (98-107); Estimated Creatinine Clearance 40 ml/min; Glucose 102 mg/dl (70-99); Potassium 4.3 mmol/L (3.5-5.1); Sodium 127 mmol/L (135-145); eGFR 55.90
[2024-09-09 11:15] VITALS: BP 117/57
--- NOTE | 2024-09-09 14:36 | W.PN.NEPH.PH ---
Today's Communication / Plan
-
Samsca 7.5 mg p.o. x 1
Assessment/Plan
-
84-year-old female with past medical history of hypokalemia hypertension, SIADH, hyperlipidemia, remote history of skin melanoma, status post resection and no recurrence of disease over the last 10 years, last colonoscopy 3 year ago that was
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
Impression
Acute kidney injury presenting creatinine 1.3.
CKD 3A baseline previously followed with
Hyponatremia 125 on admission.
SIADH? Urine sodium 36 with a urine Osmo 278
peritoneal carcinomatosis, multiple peritoneal masses (largest 8 x 5 x 6 cm), ascites, small bilateral pleural effusion
Plan.
Hyponatremia worsening to 127
Will provide Samsca 7.5 mg p.o. x 1
Monitor urine output
Increase p.o. intake solute
Pending biopsy peritoneal mass
Status post paracentesis 850 cc
Discontinue IV fluids with increasing abdominal distention
Creatinine down to 1.0
A.m. labs
-
-
Date of Service: September 09, 2024
CC / HPI / ROS
-
Chief Complaint:
History of Present Illness:
Acute kidney injury and hyponatremia with abdominal distention
Creatinine down to 1
Sodium down to 127
Review of Systems:
Abdominal distention
No chest pain or shortness of breath
Labs
-
Labs:
WBC 6.0 10^3/uL (4.8-10.8) 09/09/24 07:31
RBC 2.93 10^6/uL (4.20-5.40) L 09/09/24 07:31
Hgb 9.3 g/dL (12.0-16.0) L 09/09/24 07:31
Hct 26.4 % (37.0-47.0) L 09/09/24 07:31
Plt Count 283 10^3/uL (130-400) 09/09/24 07:31
Sodium 127 mmol/L (135-145) L 09/09/24 07:31
Potassium 4.3 mmol/L (3.5-5.1) 09/09/24 07:31
Chloride 102 mmol/L (98-107) 09/09/24 07:31
Carbon Dioxide 21 mmol/L (22-30) L 09/09/24 07:31
BUN 22 mg/dl (7-17) H 09/09/24 07:31
Creatinine 1.0 mg/dL (0.6-1.0) 09/09/24 07:31
eGFR 55.90 09/09/24 07:31
Glucose 102 mg/dl (70-99) H 09/09/24 07:31
Calcium 8.0 mg/dl (8.4-10.2) L 09/09/24 07:31
Albumin 3.2 g/dl (3.5-5.0) L 09/06/24 21:50
Physical Exam
-
Vital Signs:
Vital Signs
Temp Pulse Resp BP Pulse Ox
97.9 F 70 16 117/57 95
09/09/24 11:15 09/09/24 11:15 09/09/24 11:15 09/09/24 11:15 09/09/24 13:15
Respiratory:: Bilateral: Coarse
Lung Excursion:: Normal
Abdomen:: Distended
Bowel Sounds:: Decreased
Extremity Edema:: None: Bilateral:
[2024-09-09] MEDS: SAMSCA 7.5 MG PO (14:57)
--- NOTE | 2024-09-09 14:58 | W.PN.HOSP.TC ---
Today's Communication/Plan
-
Discharge home today
Assessment / Plan
Assessment / Plan
Impression:
84-year-old female with past medical history of hypokalemia hypertension, SIADH, hyperlipidemia, remote history of skin melanoma, status post resection and no recurrence of disease over the last 10 years, last colonoscopy 3 year ago that was
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
Seen by oncology/nephrology.
Status post paracentesis.
Ultrasound pelvis and transvaginal shows:
Complex right ovarian mass likely ovarian carcinoma considering the patient's recent CT findings. Clinical and laboratory correlation recommended.
Solid right adnexal mass likely a peritoneal metastatic disease. See prior CT report
Simple right ovarian cyst.
Mild endometrial cavity fluid. Nonspecific.
Myomatous uterus.
Mild ascites
Will be discharged to follow-up with oncology as outpatient
Assessment/plan:
Peritoneal carcinomatosis -multiple intra-abdominal lesions concerning for peritoneal carcinomatosis with moderate amount of ascites.
No obvious mass effect. No small bowel obstruction. No urinary obstruction.
-admited to telemetry
- tissue sampling/biopsy of most accessible site: oncology consultation, IR consultation,
ordered paracentesis with cytology for now
- tumer markers with cea, ca19-9 ca 125, AFP
- IV fluids with NS, pain control and antiemetics
09/09
Status post paracentesis.
Ultrasound pelvis and transvaginal shows:
Complex right ovarian mass likely ovarian carcinoma considering the patient's recent CT findings. Clinical and laboratory correlation recommended.
Solid right adnexal mass likely a peritoneal metastatic disease. See prior CT report
Simple right ovarian cyst.
Mild endometrial cavity fluid. Nonspecific.
Myomatous uterus.
Mild ascites
Will be discharged to follow-up with oncology as outpatient
Hyponatremia - Multifactorial. Hx of SIADH, now with decreased po intake and ongoing use of triamterene. Urine studies c/w siadh but patient hx c/w hypovolemia
-Appreciate nephrology input
Hyperkalemia - On triamterene, dehydration
- hold triamterene
-Improved
- low K diet
HTN -
- continue her amlodipine, propranolol
- holding triamterene
- continue losartan
CODE STATUS: Full code
DVT prophylaxis: Lovenox
Diet: regular
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
Disposition: Pending paracentesis and fluid biopsy
Total time spent on today's encounter was 65 minutes which included time spent in counseling the patient/family regarding diagnosis and treatment plan as listed above, goals of care, and symptom management. Case was discussed with nursing staff,
specialists, and care coordinators/case management. All labs and imaging personally reviewed by me. Remainder the time spent in detailed review of previous records, lab data, imaging, and other medical provider documentation.
Anticipated Discharge: Today
Subjective/Interval History
-
Date of Service: September 09, 2024
Patient seen and examined at bedside, still with abdominal fullness and discomfort but slightly improved compared to yesterday.
Denies any chest pain or shortness of breath, no nausea, no vomiting, had 3 bowel movement.
Objective Data
-
Labs:
Laboratory Results
09/09/24
07:31
WBC 6.0
Hgb 9.3 L
Hct 26.4 L
Plt Count 283
Sodium 127 L
Potassium 4.3
Chloride 102
Carbon Dioxide 21 L
BUN 22 H
Creatinine 1.0
Glucose 102 H
Calcium 8.0 L
Vital Signs:
Vital Signs
Temp Pulse Resp BP Pulse Ox
97.9 F 70 16 117/57 95
09/09/24 11:15 09/09/24 11:15 09/09/24 11:15 09/09/24 11:15 09/09/24 13:15
I&O
09/08/24 09/09/24 09/10/24
06:59 06:59 06:59
Intake Total 849 / 849 960 / 960
Balance 849 / 849 960 / 960
Physical Exam
-
General: Well Developed, Well Nourished, No Apparent Distress and Comfortable
HEENT: Normocephalic, Atraumatic, Moist Mucous Membranes, No Ptosis, PERRLA and Nose Appears Normal
Respiratory: Rales and Non Labored Respirations
Cardiac: Regular Rhythm and S1/S2
Breast: Deferred by me
GI: Soft, Normal Bowel Sounds, Tender and Distended
Genito-urinary: No Costovertebral Tender
Musculoskeletal: No Clubbing, No Cyanosis and No Edema
Skin: Warm
Neuro: Awake, Alert, Oriented, AO x 3 and No Motor Deficits
Psych: Calm
Data Reviewed
-
Diagnostic Radiology: Image personally visualized and interpreted and Report Reviewed by me
CT Scan: Image personally visualized and interpreted and Report Reviewed by me
Ultrasound: Image personally visualized and interpreted and Report Reviewed by me
MRI: Image personally visualized and interpreted and Report Reviewed by me
Medical Tests (Nuc Med, Echo etc): Image personally visualized and interpreted and Report Reviewed by me
Labs: Labs Reviewed by me
Old Records: Reviewed
--- NOTE | 2024-09-09 15:08 | W.DCSUMMARY ---
Discharge Summary
Discharge Data
Date of Admission: 09/07/24
Date of Discharge: 09/09/24
-
Pending Results: No
Hospital Course
Hospital course
84-year-old female with past medical history of hypokalemia hypertension, SIADH, hyperlipidemia, remote history of skin melanoma, status post resection and no recurrence of disease over the last 10 years, last colonoscopy 3 year ago that was
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
Seen by oncology/nephrology.
Status post paracentesis.
Ultrasound pelvis and transvaginal shows:
Complex right ovarian mass likely ovarian carcinoma considering the patient's recent CT findings. Clinical and laboratory correlation recommended.
Solid right adnexal mass likely a peritoneal metastatic disease. See prior CT report
Simple right ovarian cyst.
Mild endometrial cavity fluid. Nonspecific.
Myomatous uterus.
Mild ascites
Will be discharged to follow-up with oncology as outpatient
During hospitalization patient was treated from the following
Peritoneal carcinomatosis -multiple intra-abdominal lesions concerning for peritoneal carcinomatosis with moderate amount of ascites.
No obvious mass effect. No small bowel obstruction. No urinary obstruction.
-admited to telemetry
- tissue sampling/biopsy of most accessible site: oncology consultation, IR consultation,
ordered paracentesis with cytology for now
- tumer markers with cea, ca19-9 ca 125, AFP
- IV fluids with NS, pain control and antiemetics
09/09
Status post paracentesis.
Ultrasound pelvis and transvaginal shows:
Complex right ovarian mass likely ovarian carcinoma considering the patient's recent CT findings. Clinical and laboratory correlation recommended.
Solid right adnexal mass likely a peritoneal metastatic disease. See prior CT report
Simple right ovarian cyst.
Mild endometrial cavity fluid. Nonspecific.
Myomatous uterus.
Mild ascites
Will be discharged to follow-up with oncology as outpatient
Hyponatremia - Multifactorial. Hx of SIADH, now with decreased po intake and ongoing use of triamterene. Urine studies c/w siadh but patient hx c/w hypovolemia
-Appreciate nephrology input
Hyperkalemia - On triamterene, dehydration
- hold triamterene
-Improved
- low K diet
HTN -
- continue her amlodipine, propranolol
- holding triamterene
- continue losartan
CODE STATUS: Full code
DVT prophylaxis: Lovenox
Diet: regular
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
Disposition: Pending paracentesis and fluid biopsy
Total time spent on today's encounter was 40 minutes which included time spent in counseling the patient/family regarding diagnosis and treatment plan as listed above, goals of care, and symptom management. Case was discussed with nursing staff,
specialists, and care coordinators/case management. All labs and imaging personally reviewed by me. Remainder the time spent in detailed review of previous records, lab data, imaging, and other medical provider documentation.
Anticipated Discharge: Today
Discharge Plan
-
Patient Disposition: Home (Routine Discharge)
Discharge Diagnosis/Procedures: Peritoneal carcinomatosis.
Complex right ovarian mass likely ovarian carcinoma.
Hyponatremia.
Hyperakalemia
Diet: As tolerated, Regular and Other diet
Additional Diets: Low potassium
Activity: As tolerated
Referrals:
Roque Tapia DO [Active, Nephrology] - in two to four weeks
Libertad Ho MD [Family Provider, Internal Medicine]
Adan Youngblood MD [Active, [facility] [facility] Oncology] - in less than 1 week
Igor Sampson MD [Active, Hematology / Oncology] - in less than 1 week
Prescriptions:
Continued
ondansetron 4 MG tablet,disintegrating
4 mg PO TIDPRN PRN (Reason: nausea) Qty: 12 0RF
simvastatin 20 mg Tablet
20 mg PO DAILY
Rx Instructions:
takes in PM
Inderal
20 mg PO BID
Zetia
10 mg PO DAILY
Rx Instructions:
daily in PM
Amlodipine
2.5 mg PO DAILY
Rx Instructions:
takes in evening
Centrum
1 tab PO DAILY
Estring
2 mg intrauterine [id number]
Rx Instructions:
per pt last done approx 3 1/2 months ago
aspirin
Q48H
Patient Comments:
pt took per 911 instructions
Rx Instructions:
81 mg orally
losartan
100 mg PO DAILY
Discontinued
triamterene [Dyrenium] 100 mg Capsule
100 mg PO DAILY
Discharge Orders:
Discharge Patient (As Directed); Ordered 09/09/24
Ordered By: Kadie Moraelz
Discharge Date and Time
Print Language: GHANAIAN
[2024-09-09 15:17] VITALS: BP 136/80
--- NOTE | 2024-09-09 15:37 | CM ---
CM reviewed chart, patient for discharge today. CM offered VN to patient, declining at this time. Patient confirms transportation home. Patient previously provided with private caregiver information. CM will continue to follow for all discharge
planning needs.
Plan; home no needs
[2024-09-10 02:06] LABS: CA 19-9 10 U/mL (<=35)
== END 2024-09-09 16:15 | disposition home or self-care (01) | DRG 375 ==
LOC: 4 EAST ACU 04:55
PROVIDERS: Emergency Medicine; Physician Assistant; Radiology Vascular & Interventional Radiology; ADMITTING PHYSICIAN Internal Medicine; ATTENDING PHYSICIAN General Practice; EMERGENCY PHYSICIAN Emergency Medicine; FAMILY PHYSICIAN Student in an Organized Health Care Education/Training Program; OTHER PHYSICIAN Internal Medicine Hematology & Oncology; OTHER PHYSICIAN Internal Medicine Nephrology
PROC: 0W9G3ZX Drainage of Peritoneal Cavity, Percutaneous Approach, Diagnostic (ICD-10-PCS; 2024-09-07)
DX: C78.6 Secondary malignant neoplasm of retroperitoneum and peritoneum (principal); C56.9 Malignant neoplasm of unspecified ovary; R18.8 Other ascites; E22.2 Syndrome of inappropriate secretion of antidiuretic hormone; N17.9 Acute kidney failure, unspecified; J90 Pleural effusion, not elsewhere classified; K86.2 Cyst of pancreas; E86.0 Dehydration; E87.5 Hyperkalemia; D25.9 Leiomyoma of uterus, unspecified; D64.9 Anemia, unspecified; E78.00 Pure hypercholesterolemia, unspecified; E87.6 Hypokalemia; Z85.820 Personal history of malignant melanoma of skin; Z86.006 Personal history of melanoma in-situ; Z96.653 Presence of artificial knee joint, bilateral; Z96.643 Presence of artificial hip joint, bilateral; N18.31 Chronic kidney disease, stage 3a; Z87.442 Personal history of urinary calculi; I12.9 Hypertensive chronic kidney disease with stage 1 through stage 4 chronic kidney disease, or unspecified chronic kidney disease; Z79.899 Other long term (current) drug therapy; Z80.42 Family history of malignant neoplasm of prostate; I44.0 Atrioventricular block, first degree; K59.00 Constipation, unspecified
CPT/HCPCS: 49083; 71046; 74177; 76830; 76856; 80048; 80053; 81003; 81015; 82042; 82105; 82378; 82728; 83615; 83690; 83735; 83930; 83935; 84300; 84484; 85025; 85027; 86301; 86304; 87015; 87070; 87205; 88112; 88305; 88341; 88342; 88360; 89051; 93005; 96374; 99285; Q9967

== ENCOUNTER 2024-09-11 09:12 | Emergency (ER) | payer MEDICARE, OTHER, SELFPAY ==
[2024-09-11 09:14] VITALS: BP 141/76
[2024-09-11 09:15] VITALS: BP 141/76
[2024-09-11 09:32] LABS: Hematocrit 30.4 % (37.0-47.0); Hemoglobin 10.3 g/dL (12.0-16.0); Mean Corp Hgb Conc. 33.9 g/dL (33.0-37.0); Mean Corpuscular Volume 93.8 fL (81.0-99.0); Nucleated Red Blood Cells % 0 %; Platelet Count 374 10^3/uL (130-400); Red Cell Dist. Width 11.8 % (11.5-14.5)
[2024-09-11 09:48] LABS: ALT (SGPT) 19 U/L (0-35); AST (SGOT) 31 U/L (14-36); Albumin 2.8 g/dl (3.5-5.0); Alkaline Phosphatase 91 U/L (38-126); Blood Urea Nitrogen 23 mg/dl (7-17); Calcium 8.5 mg/dl (8.4-10.2); Carbon Dioxide 27 mmol/L (22-30); Chloride 103 mmol/L (98-107); Estimated Creatinine Clearance 44 ml/min; Glucose 111 mg/dl (70-99); Lipase 59 U/L (23-300); Potassium 4.5 mmol/L (3.5-5.1); Sodium 132 mmol/L (135-145); Total Protein 5.4 g/dl (6.3-8.2); eGFR > 60.00
--- NOTE | 2024-09-11 10:38 | ED.GENMED ---
History of Present Illness
General
Chief Complaint: Abdominal Pain
Time Seen by Provider: 09/11/24 09:13
History of Present Illness
History of Present Illness:
84-year-old female with history of recently diagnosed ovarian cancer and peritoneal carcinomatosis with ascites, hypertension, hyperlipidemia, and SIADH presents for evaluation of generalized weakness and recurrent abdominal distention. During
recent admission she was diagnosed with a new ovarian mass and underwent a paracentesis which yielded approximately 850 cc of bloody peritoneal fluid. She feels as though her abdomen is becoming more distended again. Denies any dyspnea. She also
feels generally weak and has a poor appetite.She will see gynecologic surgery on Saturday for follow-up
Past History
Past History
ED Past Medical History: HTN and Hypercholesterolemia
ED Past Surgical History: None
Social History
Tobacco: Other
Drug: None
Personal:
Living: with family
Family History
Family History: Other (Nonsignificant)
Review of Systems
Review of Systems
Allergies reviewed?: Yes
All Other Systems: ROS reviewed and negative except as documented in HPI and ROS
Phy Exam
Physical Exam
Physical Exam:
GEN: Well appearing, NAD, WDWN
HEENT: Oral mucosa moist, no scleral icterus
Cardiac: Regular rate and rhythm, no murmur
Lung: No respiratory distress, no tachypnea
Abdomen: Mild distention and protuberance
MSK: No gross deformity or injuries
Skin: Good color, no pallor or jaundice, no rashes
Neuro: AO x3, moves all extremities freely
Psych: Calm, cooperative
Course
Orders/Labs/Results
Orders:
Orders
09/11/24 09:21
Electrocardiogram (*1) Urgent
Reason for Study: Abdominal Pain
EKG- Treatment ONCE
09/11/24 09:22
Complete Blood Count/With Diff Urgent
Comprehensive Metabolic Panel Urgent
Lipase Urgent
09/11/24 09:49
US Abdomen Limited Urgent
Comment:
Reason For Exam: distention, eval for ascites
09/11/24 11:19
IRAD CONSULT Urgent
Consulting Provider: Rosales Neely
Was physician already notified: Yes
Procedure being ordered, including laterality if applicable: paracentesis
Acknowledgement that appropriate orders are entered: Yes
09/11/24 11:49
Case Management Consult ONCE
Case Management Consult: VN/Home Care
09/11/24 13:00
Body Fluid Cell Count Routine
What is the Body Fluid: peritoneal fluid
Date Specimen was Collected: 09/11/24
Time Specimen was Collected: 12:55
Comment: post procedure
Fluid Culture with Gram Stain Routine
ANA Source: Peritoneal Fluid
Specimen Description:
Date Specimen was Collected: 09/11/24
Time Specimen was Collected: 12:55
Comment: Post Procedure
09/11/24 14:00
Amlodipine [Norvasc] 2.5 mg PO NOW STA
Losartan [Cozaar] 100 mg PO NOW STA
Abnormal Lab Results
09/11/24
09:22
RBC 3.24 L 10^6/uL
(4.20-5.40)
Hgb 10.3 L g/dL
(12.0-16.0)
Hct 30.4 L %
(37.0-47.0)
MCH 31.8 H pg
(27.0-31.0)
Absolute Lymphs (auto) 0.7 L 10^3/uL
(1.2-3.4)
Absolute Monos (auto) 0.7 H 10^3/uL
(0.1-0.6)
Neutrophils % 79.1 H %
(42.2-75.2)
Lymphocytes % 8.6 L %
(20.5-51.1)
Monocytes % 9.5 H %
(1.7-9.3)
Sodium 132 L mmol/L
(135-145)
BUN 23 H mg/dl
(7-17)
Glucose 111 H mg/dl
(70-99)
Total Protein 5.4 L g/dl
(6.3-8.2)
Albumin 2.8 L g/dl
(3.5-5.0)
09/11/24 09:22
09/11/24 09:22
Vital Signs
Initial and Last Documented VS:
Initial Vital Signs
Temp Pulse Resp BP Pulse Ox
98.7 F 86 20 141/76 96
09/11/24 09:14 09/11/24 09:14 09/11/24 09:14 09/11/24 09:14 09/11/24 09:14
Last Documented Vital Signs
Temp Pulse Resp BP Pulse Ox
98.7 F 89 25 102/85 92
09/11/24 09:14 09/11/24 14:13 09/11/24 12:30 09/11/24 14:13 09/11/24 12:30
MDM/Problems Addressed
MDM/Problems Addressed:
Medically stable, IR performed para for >1500cc. Patient symptoms improved after paracentesis. Although the white blood cell count on paracentesis fluid was elevated thus given concern for possible SBP, this was much less than her prior fluid
count which has been culture negative to date thus I do not see any indication for treatment empirically with antibiotics. She will follow-up with gynecologic surgery next week
*Pulse Oximetry
SaO2: 96
Oxygen Mode of Delivery: Room air
Patient hypoxic: no
*Critical Care Note
Total Time (30-74mins, 75-104mins- exclusive of procedures): Not Applicable
ED Attending Note
-
Portions of this chart may have been created with voice recognition software.� Occasional wrong word or��sound alike� substitutions may have occurred due to the inherent limitations of voice recognition software.
Discharge Plan
Departure
Patient Disposition: Home (Routine Discharge)
Date of Disposition: 09/11/24
Time of Disposition: 14:58
Patient with high blood pressure during this ER visit?: No
Discharge Problem:
Ascites, malignant
Instructions: Fluid in the belly from cirrhosis (ascites)
Prescriptions:
No Action
ondansetron 4 MG tablet,disintegrating
4 mg PO TIDPRN PRN (Reason: nausea) Qty: 12 0RF
simvastatin 20 mg Tablet
20 mg PO DAILY
Rx Instructions:
takes in PM
Inderal
20 mg PO BID
Zetia
10 mg PO DAILY
Rx Instructions:
daily in PM
Amlodipine
2.5 mg PO DAILY
Rx Instructions:
takes in evening
Centrum
1 tab PO DAILY
Estring
2 mg intrauterine [id number]
Rx Instructions:
per pt last done approx 3 1/2 months ago
aspirin
Q48H
Patient Comments:
pt took per 911 instructions
Rx Instructions:
81 mg orally
losartan
100 mg PO DAILY
(DME) Basal Metabolic Panel
See Rx Instructions .Route .MEDSUPPLY Qty: 1 0RF
Rx Instructions:
to be done after one week.
Diagnosis:
Hyponatremia/ Hypokalemia, please fax result to PCP and nephrology.
Referrals:
Libertad Ho MD [Family Provider, Internal Medicine]
Interventions
Interventions:
*Risk Screen - Suicide Last Done: 09/11/24 09:14
*General Assessment Last Done: 09/11/24 09:14
*Neglect/Abuse Screening Last Done: 09/11/24 09:14
*Nursing Disposition Last Done: 09/11/24 15:10
FD-Fdwwaq-Laafjgyqid Assessment Last Done: 09/11/24 09:30
Discharge Date and Time
Discharge Date/Time: 09/11/24 15:11
Print Language: HONDURAN
[2024-09-11 10:50] VITALS: BP 124/72
[2024-09-11 11:00] VITALS: BP 123/69
[2024-09-11 12:00] VITALS: BP 123/69
[2024-09-11 14:02] LABS: Body Fluid Second Tech EM
[2024-09-11] MEDS: NORVASC 2.5 MG PO (14:13)
--- NOTE | 2024-09-11 16:03 | CM ---
Patient seen at bedside in ED. Patient stated that she was caring for her who has memory concerns but she is looking for someone to cook meals for her as she is overwhelmed. Patient acknowledged getting resources after last admission but has
been to overwhelmed to be able to follow up with it. CM reviewed [facility] options including [facility] wheels and [facility]. CM will continue to follow for discharge planning needs.
Plan; home today, patient to follow up with [facility] and other resources.
== END 2024-09-11 15:11 | disposition home or self-care (01) ==
LOC: EMR 09:12
PROVIDERS: Physician Assistant; CONSULT PHYSICIAN Radiology Vascular & Interventional Radiology; EMERGENCY PHYSICIAN Student in an Organized Health Care Education/Training Program; FAMILY PHYSICIAN Student in an Organized Health Care Education/Training Program
DX: R10.9 Unspecified abdominal pain (principal); R18.0 Malignant ascites; I10 Essential (primary) hypertension; E78.00 Pure hypercholesterolemia, unspecified; E87.1 Hypo-osmolality and hyponatremia; E87.6 Hypokalemia
CPT/HCPCS: 99284; 49083; 76705; 80053; 83690; 85025; 87015; 87070; 87205; 89051; 93005

== ENCOUNTER → 2024-09-16 10:03 | Outpatient (REF) | payer MEDICARE, OTHER, SELFPAY ==
[2024-09-16 10:15] VITALS: BP 113/65; BP_SYST 74
[2024-09-16 10:44] VITALS: BP 104/61
[2024-09-16 11:36] LABS: Body Fluid Second Tech SS
== END ==
LOC: RADI 10:03
PROVIDERS: ATTENDING PHYSICIAN Obstetrics & Gynecology Gynecologic Oncology; FAMILY PHYSICIAN Student in an Organized Health Care Education/Training Program
DX: C80.1 Malignant (primary) neoplasm, unspecified (principal); R18.0 Malignant ascites
CPT/HCPCS: 49083; 89051

== ENCOUNTER → 2024-09-22 14:01 | Outpatient (REF) | payer MEDICARE, OTHER, SELFPAY | LOC: RCS 14:01 | PROVIDERS: ATTENDING PHYSICIAN Internal Medicine Cardiovascular Disease; FAMILY PHYSICIAN Student in an Organized Health Care Education/Training Program | DX: I10 Essential (primary) hypertension (principal); I35.1 Nonrheumatic aortic (valve) insufficiency; C78.6 Secondary malignant neoplasm of retroperitoneum and peritoneum; Z85.43 Personal history of malignant neoplasm of ovary | CPT/HCPCS: 93306; 93356 ==

== ENCOUNTER → 2024-09-23 09:59 | Outpatient (REF) | payer MEDICARE, OTHER, SELFPAY ==
[2024-09-23] VITALS (9 sets, daily range): BP systolic 77–90; BP diastolic 46–58
[2024-09-23 10:53] LABS: INR 1.17; PT 15.4 Sec (11.4-14.6)
--- NOTE | 2024-09-23 12:01 | PTCARENOTE ---
patients bp during paracentesis low. see intraprocedural documentation sheet. post bp remained low with MAP <65. Dr. Nelson made aware pf BP before consenting for biopsy. Dr. Nelson confirmed that he still would like patient to have moderate
sedation. this nurse explained to patient that she may not be sedated for procedure due to BP. patient would still like to proceed.
[2024-09-23 13:26] LABS: Body Fluid Second Tech CW
== END ==
LOC: RADI 09:59
PROVIDERS: ATTENDING PHYSICIAN Obstetrics & Gynecology Gynecologic Oncology; FAMILY PHYSICIAN Student in an Organized Health Care Education/Training Program; OTHER PHYSICIAN Physician Assistant
DX: C78.6 Secondary malignant neoplasm of retroperitoneum and peritoneum (principal); C56.1 Malignant neoplasm of right ovary; R18.0 Malignant ascites
CPT/HCPCS: 36415; 49083; 49180; 77012; 85610; 88305; 88333; 88341; 88342; 89051; 99152; 99153

== ENCOUNTER → 2024-09-29 12:20 | Outpatient (REF) | payer MEDICARE, OTHER, SELFPAY ==
[2024-09-29] VITALS (13 sets, daily range): BP systolic 101–120; BP diastolic 63–87
[2024-09-29] MEDS: ANCEF 10 IV (13:26)
== END ==
LOC: RADI 12:20
PROVIDERS: ATTENDING PHYSICIAN Obstetrics & Gynecology Gynecologic Oncology; FAMILY PHYSICIAN Student in an Organized Health Care Education/Training Program
DX: C56.1 Malignant neoplasm of right ovary (principal)
CPT/HCPCS: 36561; 76937; 77001; 99152; 99153; C1788

== ENCOUNTER → 2024-10-01 09:28 | Outpatient (REF) | payer MEDICARE, OTHER, SELFPAY ==
[2024-10-01 10:03] LABS: Hematocrit 28.1 % (37.0-47.0); Hemoglobin 9.4 g/dL (12.0-16.0); Mean Corp Hgb Conc. 33.5 g/dL (33.0-37.0); Mean Corpuscular Volume 90.9 fL (81.0-99.0); Nucleated Red Blood Cells % 0 %; Platelet Count 531 10^3/uL (130-400); Red Cell Dist. Width 12.7 % (11.5-14.5)
[2024-10-01 10:12] VITALS: BP 110/75; BP_SYST 116
[2024-10-01 10:35] VITALS: BP 100/62
[2024-10-01 11:08] LABS: ALT (SGPT) 10 U/L (0-35); AST (SGOT) 31 U/L (14-36); Albumin 2.4 g/dl (3.5-5.0); Alkaline Phosphatase 107 U/L (38-126); Blood Urea Nitrogen 43 mg/dl (7-17); Calcium 8.2 mg/dl (8.4-10.2); Carbon Dioxide 20 mmol/L (22-30); Chloride 95 mmol/L (98-107); Glucose 110 mg/dl (70-99); Potassium 5.1 mmol/L (3.5-5.1); Sodium 123 mmol/L (135-145); Total Protein 5.0 g/dl (6.3-8.2); eGFR > 60.00
[2024-10-01 12:30] LABS: Body Fluid Second Tech AP
--- NOTE | 2024-10-01 12:49 | PTCARENOTE ---
while pt present in IR, she requested her port site from insertion 09/29 be checked. post procedure dressings still in place. removed bandaid from IJ area and anterior chest wall port site. both appear to be healing well, slight bruising but no s/s
infection noted. pt with no concerns, reinforced that it is now ok for her to shower and wash the area gently with warm soap and water. pt verbalizes understanding.
[2024-10-01 19:46] LABS: CA 125 1300 U/mL (0-35)
== END ==
LOC: RADI 09:28
PROVIDERS: ATTENDING PHYSICIAN Obstetrics & Gynecology Gynecologic Oncology; FAMILY PHYSICIAN Student in an Organized Health Care Education/Training Program; REFERRING PHYSICIAN Internal Medicine Hematology & Oncology
DX: C56.1 Malignant neoplasm of right ovary (principal); R18.0 Malignant ascites
CPT/HCPCS: 36415; 49083; 80053; 85025; 86304; 89051

== ENCOUNTER → 2024-10-05 11:43 | Outpatient (REF) | payer MEDICARE, OTHER, SELFPAY ==
[2024-10-05 12:13] VITALS: BP 108/75; BP_SYST 98
[2024-10-05 12:44] VITALS: BP 106/68; BP_SYST 105
[2024-10-05 12:57] VITALS: BP 106/68
[2024-10-05 15:10] LABS: Body Fluid Second Tech EM
== END ==
LOC: RADI 11:43
PROVIDERS: ATTENDING PHYSICIAN Obstetrics & Gynecology Gynecologic Oncology; FAMILY PHYSICIAN Student in an Organized Health Care Education/Training Program
DX: R18.8 Other ascites (principal)
CPT/HCPCS: 49083; 89051

== ENCOUNTER 2024-10-11 05:57 | Inpatient (IN) | payer MEDICARE, OTHER, SELFPAY ==
[2024-10-11] VITALS (13 sets, daily range): BP systolic 83–122; BP diastolic 49–68; PULSE 105; O2SAT 99; BMI 25.2; BMI 25.8
[2024-10-11 01:58] LABS: Hematocrit 25.1 % (37.0-47.0); Hemoglobin 8.4 g/dL (12.0-16.0); Mean Corp Hgb Conc. 33.5 g/dL (33.0-37.0); Mean Corpuscular Volume 89.3 fL (81.0-99.0); Platelet Count 124 10^3/uL (130-400); Red Cell Dist. Width 13.5 % (11.5-14.5)
[2024-10-11 02:24] LABS: ALT (SGPT) 20 U/L (0-35); AST (SGOT) 45 U/L (14-36); Albumin 2.3 g/dl (3.5-5.0); Alkaline Phosphatase 116 U/L (38-126); Blood Urea Nitrogen 59 mg/dl (7-17); Calcium 7.6 mg/dl (8.4-10.2); Carbon Dioxide 26 mmol/L (22-30); Chloride 98 mmol/L (98-107); Estimated Creatinine Clearance 43 ml/min; Glucose 121 mg/dl (70-99); Potassium 5.7 mmol/L (3.5-5.1); Sodium 124 mmol/L (135-145); Total Protein 4.5 g/dl (6.3-8.2); eGFR > 60.00
[2024-10-11 03:03] LABS: Absolute Neutrophils -Man Diff 5.7 10^3/uL (1.4-6.5); Platelets Checked Yes
[2024-10-11 03:04] LABS: Normal RBC Morphology No; Target Cells 1+; Total Cells Counted 100; Toxic Granulation 1+; Vacuolated Segs Occasional
[2024-10-11 03:05] LABS: Hypochromasia 1+
[2024-10-11 03:06] LABS: Ovalocytes Occasional
[2024-10-11] MEDS: NSS 1000 IV (03:24)
--- NOTE | 2024-10-11 03:52 | ED.GENMED ---
History of Present Illness
General
Chief Complaint: Weakness
Source: patient
Exam Limitations: none
Time Seen by Provider: 10/11/24 03:16
Nursing documentation reviewed up to this point in time: agreed with
History of Present Illness
History of Present Illness:
Note:
CHIEF COMPLAINT(S)
The patient presents with weakness and inability to eat.
HISTORY OF PRESENT ILLNESS
The patient is an 84-year-old female who presents with significant weakness and inability to eat, which has severely impacted her ability to care for herself and her . The patient reports that she feels as though 'a truck hit' her, indicating
a sudden decline in health. She states that approximately 12 weeks ago, she was capable of taking care of her with no issues.
She has been diagnosed with ovarian cancer and has undergone chemotherapy. The patient�s blood sodium level is critically low at 124 mmol/L, which she reports has always been slightly low, typically around 120 mmol/L. She mentions recent episodes of
dehydration.
In addition, she expresses feelings of weakness and an inability to move her legs easily. The patient denies any chest pain or dyspnea. She also reports that she has undergone four paracentesis procedures recently to manage abdominal fluid
accumulation. The most recent procedure was on Saturday, and she feels she might require another soon. The patient does not consume alcohol.
PAST MEDICAL AND SURGICAL HISTORY
- Diagnosed with ovarian cancer
- History of hypertension with recent cessation of antihypertensive medication due to low blood pressure
SOCIAL DETERMINANTS AFFECTING HEALTH
The patient lives at home with her , who suffers from Alzheimers disease and cannot assist with her care due to his condition. A visiting nurse supports her situation. Her is a retired academic physician.
REVIEW OF SYSTEMS
- General: Significant weakness, unable to eat.
- Musculoskeletal: Difficulty in moving legs without strength as before.
- Gastrointestinal: History of undergoing four paracentesis for fluid removal.
PHYSICAL EXAM
General: Alert, no acute distress.
Skin: Warm, dry.
Head: Normocephalic, atraumatic.
Neck: Supple, trachea midline.
Eye, Ears, Nose, Mouth and Throat: Oral mucosa dry. She has been tolerating liquids
Cardiovascular: Normal peripheral perfusion, No edema.
Respiratory: Respirations are non-labored.
Gastrointestinal: Abdomen distended, ascitic wave present
Musculoskeletal: Normal ROM, normal strength.
Neurological: Alert and oriented to person, place, time, and situation, No focal neurological deficit observed.
Psychiatric: Cooperative, appropriate mood & affect.
PLAN
- Admission to the hospital for further evaluation and treatment of low sodium and dehydration.
- Assessment and management of the abdominal fluid accumulation, possibly with another paracentesis.
- Continue monitoring and adjusting treatment for ovarian cancer as needed.
DIFFERENTIAL DIAGNOSIS
The Differential Diagnosis includes, in no particular order and is not limited to:
1. Hyponatremia secondary to fluid overload or hormonal imbalance.
2. Weakness due to chemotherapy or cancer progression.
3. Dehydration.
4. Neuromuscular weakness possibly related to hypokalemia.
5. Malnutrition or inability to intake sufficient nutrients.
6. Dyselectrolytemia induced by medications or renal dysfunction.
7. Uremia due to renal insufficiency.
8. Paraneoplastic syndrome affecting muscular or neurologic function.
9. Overlapping features of depression or situational stress due to caregiving responsibilities.
10. Chronic anemia secondary to cancer or nutritional deficiencies.
Disposition:
SUMMARY OF ENCOUNTER
The patient, an 84-year-old female, presented with new-onset ovarian cancer diagnosis and weakness following her first round of chemotherapy, resulting in dehydration and an inability to tolerate foods. She reported routine paracentesis procedures,
coordinated through interventional radiology, with anticipation of another on the upcoming Saturday due to abdominal enlargement. Her history includes recurrent hyponatremic events, for which she has been admitted in the past. The patient denied
experiencing fever or chills. Given her current condition and lab findings, she is to be admitted for treatment and management of her hyponatremia and possible paracentesis.
DISPOSITION
Admit
ASSESSMENT
Hyponatremia likely secondary to dehydration and chemotherapy, requiring correction and management in a hospital setting. Possible need for paracentesis due to abdominal fluid accumulation.
PLAN
The patient will be admitted to the hospital for correction of hyponatremia and evaluation for possible paracentesis.
MEDICAL DECISION MAKING
- Number and Complexity of Problems Addressed: Chronic conditions affecting care include significant weakness post-chemotherapy, inability to eat, persistent hyponatremia, and planned abdominal paracentesis.
- Data:
Category 1:
- Reviewed history of regular paracentesis from interventional radiology and episodes of hyponatremia.
- Risk: Admission to hospital required for managing significant electrolyte imbalance (hyponatremia) and potential procedural intervention (paracentesis).
DIAGNOSIS
- Hyponatremia (E87.1)
- Malignant neoplasm of ovary (C56.9)
Past History
Past History
ED Past Medical History: HTN and Hypercholesterolemia
ED Past Surgical History: None
Social History
Tobacco: Other
Drug: None
Personal:
Living: with family
Family History
Family History: Other (Nonsignificant)
Phy Exam
Physical Exam
Physical Exam:
.
Course
Orders/Labs/Results
Orders:
Orders
10/11/24 01:44
Complete Blood Count/With Diff Urgent
Comprehensive Metabolic Panel Urgent
Manual Differential Urgent
10/11/24 03:16
0.9% Sodium Chloride 1000 ml [Nss] 1,000 ml IV BOLUS
Abnormal Lab Results
10/11/24
01:44
RBC 2.81 L 10^6/uL
(4.20-5.40)
Hgb 8.4 L g/dL
(12.0-16.0)
Hct 25.1 L %
(37.0-47.0)
Plt Count 124 L 10^3/uL
(130-400)
MPV 10.5 H fL
(7.4-10.4)
Segmented Neutrophils 82 H %
(42-75)
Band Neutrophils 10 H %
(0-3)
Lymphocytes (Manual) 2 L %
(20-51)
Sodium 124 L mmol/L
(135-145)
Potassium 5.7 H mmol/L
(3.5-5.1)
BUN 59 H mg/dl
(7-17)
Glucose 121 H mg/dl
(70-99)
Calcium 7.6 L mg/dl
(8.4-10.2)
AST 45 H U/L
(14-36)
Total Protein 4.5 L g/dl
(6.3-8.2)
Albumin 2.3 L g/dl
(3.5-5.0)
10/11/24 01:44
10/11/24 01:44
Vital Signs
Initial and Last Documented VS:
Initial Vital Signs
Temp Pulse Resp BP Pulse Ox
97.7 F 96 20 122/66 93
10/11/24 01:29 10/11/24 01:29 10/11/24 01:29 10/11/24 01:29 10/11/24 01:29
Last Documented Vital Signs
Temp Pulse Resp BP Pulse Ox
97.7 F 97 27 100/65 94
10/11/24 01:29 10/11/24 03:15 10/11/24 03:15 10/11/24 03:00 10/11/24 02:45
*Pulse Oximetry
SaO2: 94
Oxygen Mode of Delivery: Room air
Patient hypoxic: no
*Critical Care Note
Total Time (30-74mins, 75-104mins- exclusive of procedures): Not Applicable
ED Attending Note
-
Portions of this chart may have been created with voice recognition software.� Occasional wrong word or��sound alike� substitutions may have occurred due to the inherent limitations of voice recognition software.
Discharge Plan
Departure
Patient Disposition: Admit
Date of Disposition: 10/11/24
Time of Disposition: 03:53
Admit to: Telemetry
Presentation/result/management discussed w/ accepting MD/DO: Hospitalist
Discharge Problem:
Anorexia, Ascites, Hyperkalemia, Acute hyponatremia, CKD (chronic kidney disease)
Prescriptions:
No Action
ondansetron 4 MG tablet,disintegrating
4 mg PO TIDPRN PRN (Reason: nausea) Qty: 12 0RF
Zetia
10 mg PO DAILY
Rx Instructions:
daily in PM, on HOLD for hypotension
aspirin
81 mg PO Q48H
Patient Comments:
pt took per 911 instructions
Rx Instructions:
81 mg orally
(DME) Basal Metabolic Panel
See Rx Instructions .Route .MEDSUPPLY Qty: 1 0RF
Rx Instructions:
to be done after one week.
Diagnosis:
Hyponatremia/ Hypokalemia, please fax result to PCP and nephrology.
Referrals:
UNKNOWN - PT NOT,[facility] [Family Provider]
Interventions
Interventions:
*Risk Screen - Suicide Last Done: 10/11/24 01:29
*General Assessment Last Done: 10/11/24 01:29
*ED- Fall Risk Assessment Last Done: 10/11/24 01:36
*ED COVID-19 Vaccine History Last Done: 10/11/24 01:36
ED- Cardiac Assessment Last Done: 10/11/24 01:36
ED- Neurological Assessment Last Done: 10/11/24 01:36
ED- Pulmonary Assessment Last Done: 10/11/24 01:36
Discharge Date and Time
Print Language: SINHALA
--- NOTE | 2024-10-11 05:29 | HPS.HSE ---
Family Physician
-
Family Physician: INTER[facility] UNKNOWN - PT NOT
Chief Complaint
-
Weakness, Fatigue
History of Present Illness
Patient is an 84y F with PMH significant for hypertension, chronic hyponatremia and recent diagnosis of ovarian cancer who presents to ED complaining of progressive weakness and fatigue. Patient states that current symptoms have been gradually
worsening over the past several weeks. She had her first chemo treatment on Saturday; however, the weakness started well before that. She denies any associated N/V/D following chemotherapy. She complains of generalized weakness and fatigue. She
states that she is extremely limited in her ability to stand, ambulate, etc due to LE weakness and sense that her legs with 'give out'. She denies lightheadedness or dizziness.
Patient denies any cough, SOB, fevers / chills, chest pain, palpitations, abdominal pain, etc.
No new medications excepting chemotherapy. In fact, she has discontinued the majority of her prior medications due to low BP.
Medical History
Past Medical History
Past Medical History: Reports Other
Additional Past Medical History:
Hypertension
Malignant Melanoma
Right Acoustic Neuroma
Ovarian Cancer
Chronic Hyponatremia
Bicuspid Aortic Valve
Past Surgical History: Reports Other
Additional Past Surgical History:
Bilateral JOSÉ
Bilateral TKA
Bunionectomy
Breast Biopsy (benign)
Social History
Tobacco: Non-smoker
Alcohol: Occasional
Drug: None
Family History
Family History: Not pertinent
Allergies / Home Medications
Allergies reflects when Allergies were last updated in [employer].
Home Medications with original date entered in [employer]
Allergy/Medication List:
Allergies
Allergy/AdvReac Type Severity Reaction Status Date / Time
meloxicam AdvReac stiff neck Verified 10/11/24 01:29
oxycodone AdvReac constipatio Verified 10/11/24 01:29
n
Home Medications
ondansetron 4 mg disintegrating tablet 4 mg PO TIDPRN PRN nausea #12 tabs 11/19/14
aspirin 81 mg chewable tablet 81 mg PO DAILY 10/11/24
Review of Systems
-
History Source: Patient
A 12 point ROS was completed and negative except as noted: Yes
Constitutional: Reports Fatigue; Denies Fever or Chills
Respiratory: Denies Cough or Trouble Breathing
Cardiac: Denies Chest Pain or Palpitations
Abdomen/GI: Reports Other (abdominal distention); Denies Abdominal Pain, Nausea, Vomiting or Diarrhea
: Denies Dysuria, Frequency or Flank Pain
Musculoskeletal: Reports Edema; Denies Joint Pain
Neurological: Denies Dizzy or Headache
Psych: Denies Depression or Anxiety
Physical Exam
Vital Signs
Vital Signs
Temp Pulse Resp BP Pulse Ox
97.7 F 94 25 107/59 93
10/11/24 01:29 10/11/24 04:15 10/11/24 04:15 10/11/24 04:00 10/11/24 04:15
Physical Exam
General: Other (84y F in no acute distress.)
HEENT: Moist mucous membranes and PERRLA
Respiratory: Clear; No Wheezes, Rales or Rhonchi
Cardiac: S1/S2, Regular Rhythm and Murmur (II/ LUCIANO)
GI: Other (Abdomen is softly distended with pos fluid wave. No focal tenderness. Pos BS.)
Musculoskeletal: No Clubbing, No Cyanosis and Other (2+ pitting edema b/l LEs.)
Neuro: AO x 3
Laboratory Results
-
10/11/24 01:44
10/11/24 01:44
Laboratory Results
Total Bilirubin 0.7 mg/dl (0.2-1.3) 10/11/24 01:44
AST 45 U/L (14-36) H 10/11/24 01:44
ALT 20 U/L (0-35) 10/11/24 01:44
Alkaline Phosphatase 116 U/L (38-126) 10/11/24 01:44
Impression/Plan
-
A/P: Patient is an 84y F with PMH significant for hypertension and ovarian cancer who presents to ED complaining of generalized weakness.
Generalized Weakness / Fatigue
- Admit for further evaluation and treatment.
- This is likely multifactorial and due to underlying malignancy +/- chemo +/- hyponatremia, etc.
- Treat individual issues as noted below.
- PT / OT evaluations.
- Follow for clinical improvement.
Acute on Chronic Hyponatremia
- Na level = 124 today with baseline around 130 per patient.
- Appears grossly volume overloaded on today's exam with ascites and LE edema.
- Received 1L NSS so far here in the ED. Hold further IVFs.
- Fluid restriction.
- Trial of Lasix and monitor for hypotension.
- Nephrology evaluation for additional recommendations. Received dose of Samsca during prior admission.
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
- Newly diagnosed. s/p 1 dose of chemo thus far (last Saturday).
- No N/V/D or other evident adverse effects.
- Has been receiving weekly paracenteses (last on 10/05 for 1850cc).
- Monitor exam. Lasix as noted above. Consider IR eval / repeat paracentesis during stay.
Normocytic Anemia
- Hgb is fairly stable compared to recent values. But new anemia from prior baseline (2020).
- ? some worsening of anemia s/p chemo this week.
- Check iron studies, B12, etc.
- Follow H&H for changes.
DVT Prophylaxis: Lovenox
Code Status: Full
[2024-10-11] MEDS: LASIX 20 MG IV ×2 (10:20→16:42)
[2024-10-11] MEDS: LOW STRENGTH ASPIRIN 81 MG PO (10:22)
[2024-10-11 10:35] LABS: Blood Urea Nitrogen 54 mg/dl (7-17); Calcium 7.5 mg/dl (8.4-10.2); Carbon Dioxide 23 mmol/L (22-30); Chloride 100 mmol/L (98-107); Estimated Creatinine Clearance 48 ml/min; Glucose 109 mg/dl (70-99); Iron 108 ug/dl (37-170); Potassium 5.2 mmol/L (3.5-5.1); Sodium 124 mmol/L (135-145); eGFR > 60.00
[2024-10-11 10:44] LABS: Total Iron Binding Capacity 231 ug/dl (265-497)
--- NOTE | 2024-10-11 10:57 | CM ---
Reviewed the chart notes and spoke with the patient at the bedside. Patient resides with spouse in a two story home with a ramp to enter. Patient's master bedroom on first level. The patient reports no DME/VN/SNF in the past. The patient does
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 Times vary according to the patient. Patient confirmed her pharmacy of choice is [facility]. CM continues to be available to patient/family and is
monitoring medical plan for needs at discharge.
Plan: Discharge plans will depend on the patient's progress.
[2024-10-11 11:33] LABS: Folate 9.7 ng/ml (2.76-20); Vitamin B12 951 pg/ml (239-931)
[2024-10-11 13:46] LABS: Blood Urea Nitrogen 56 mg/dl (7-17); Calcium 7.7 mg/dl (8.4-10.2); Carbon Dioxide 25 mmol/L (22-30); Chloride 99 mmol/L (98-107); Estimated Creatinine Clearance 48 ml/min; Glucose 141 mg/dl (70-99); Potassium 4.7 mmol/L (3.5-5.1); Sodium 124 mmol/L (135-145); eGFR > 60.00
--- NOTE | 2024-10-11 14:59 | W.CON.NEPH ---
Consultation
-
Date/Time Consultation Requested: October 11, 2024 at 5 AM
Date/Time Consultation Performed: October 11, 2024 at 2 PM
Requesting Provider: Popeye Alcantar
Performing Provider: Dr. Bautista
Reason for Consultation: Hyponatremia
Medical History
-
Chief Complaint: Acute on chronic kidney disease and hyponatremia
History of Present Illness:
84-year-old female with past medical history of hypokalemia hypertension, SIADH, hyperlipidemia, remote history of skin melanoma, status post resection and no recurrence of disease over the last 10 years, last colonoscopy 3 year ago ovarian cancer
with peritoneal carcinomatosis newly diagnosed over the last couple months. Presents with weaknessAnd found to have a sodium of 124
Renal consultation for hyponatremia chronic and recurrent
Past Medical History
Hypokalemia hypertension, SIADH, hyperlipidemia, remote history of skin melanoma, status post resection
Social History
Tobacco: Non-Smoker
Alcohol: None
Family History
Family History: Not Pertinent
Allergies / Home Medications
Allergy/AdvReac Type Severity Reaction Status Date / Time
meloxicam AdvReac stiff neck Verified 10/11/24 01:29
oxycodone AdvReac constipatio Verified 10/11/24 01:29
n
�Medication �Instructions �Recorded �Confirmed �Type
ondansetron 4 mg disintegrating 4 mg PO TIDPRN PRN nausea #12 tabs 11/19/14 10/11/24 Rx
tablet
aspirin 81 mg chewable tablet 81 mg PO DAILY Blood Clot 10/11/24 10/11/24 History
Prevention/Tx
Review of Systems
-
Generalized weakness lower extremity edema and abdominal bloating
All other systems: Negative unless noted
Physical Exam
Vital Signs
Vital Signs
Temp Pulse Resp BP Pulse Ox
97.4 F 107 16 95/59 96
10/11/24 11:00 10/11/24 11:00 10/11/24 11:00 10/11/24 11:00 10/11/24 11:00
Lab Results
WBC 6.2 10^3/uL (4.8-10.8) 10/11/24 01:44
RBC 2.81 10^6/uL (4.20-5.40) L 10/11/24 01:44
Hgb 8.4 g/dL (12.0-16.0) L 10/11/24 01:44
Hct 25.1 % (37.0-47.0) L 10/11/24 01:44
Plt Count 124 10^3/uL (130-400) L 10/11/24 01:44
eGFR > 60.00 10/11/24 13:16
Albumin 2.3 g/dl (3.5-5.0) L 10/11/24 01:44
Physical Exam
General no acute distress
HEENT no cephalic atraumatic extraocular muscle intact no scleral icterus no JVD neck supple
lungs clear to auscultation bilateral
heart regular S1-S2 positive
abdomen abdominal distention no tenderness
extremities +3 edema
Neurologically nonfocal alert and oriented x 3
Skin no lesions no abrasions no petechiae
Psych normal affect no bizarre behavior
Data Reviewed
-
Labs: Labs Reviewed by me, Discussed with Physician and Discussed with Patient
Assessment/Plan
-
84-year-old female with past medical history of hypokalemia hypertension, SIADH, hyperlipidemia, remote history of skin melanoma, status post resection and no recurrence of disease over the last 10 years, last colonoscopy 3 year ago ovarian cancer
with peritoneal carcinomatosis newly diagnosed over the last couple months. Presents with weaknessAnd found to have a sodium of 124
Renal consultation for hyponatremia chronic and recurrent
Impression
CKD 3A baseline previously followed with
Hyponatremia 124 on admission.
SIADH diagnosed previous admission
peritoneal carcinomatosis, multiple peritoneal masses (largest 8 x 5 x 6 cm), ascites, small bilateral pleural effusion
Plan.
Urine sodium low less than 5 with urine osmolality 555
Serum albumin 2.3 decreased effective arterial blood volume with increased ADH levels.
Continue diuretics.
Will order Samsca x 1
Increase protein in diet.
Fluid restrict 48 ounces.
Patient's friends who help provide care with the bedside discussed with everybody and all questions were answered.
A.m. labs
[2024-10-11] MEDS: SAMSCA 30 MG PO (16:41)
[2024-10-11] MEDS: LOVENOX 40 MG SC (16:42)
[2024-10-11 20:52] LABS: Blood Urea Nitrogen 53 mg/dl (7-17); Calcium 7.4 mg/dl (8.4-10.2); Carbon Dioxide 24 mmol/L (22-30); Chloride 99 mmol/L (98-107); Estimated Creatinine Clearance 43 ml/min; Glucose 139 mg/dl (70-99); Potassium 4.6 mmol/L (3.5-5.1); Sodium 124 mmol/L (135-145); eGFR > 60.00
[2024-10-12] VITALS (9 sets, daily range): BP systolic 83–125; BP diastolic 50–81; BMI 24.2
[2024-10-12 01:54] LABS: Blood Urea Nitrogen 55 mg/dl (7-17); Calcium 7.6 mg/dl (8.4-10.2); Carbon Dioxide 25 mmol/L (22-30); Chloride 100 mmol/L (98-107); Estimated Creatinine Clearance 43 ml/min; Glucose 133 mg/dl (70-99); Potassium 4.7 mmol/L (3.5-5.1); Sodium 125 mmol/L (135-145); eGFR > 60.00
[2024-10-12 08:47] LABS: ALT (SGPT) 16 U/L (0-35); AST (SGOT) 34 U/L (14-36); Albumin 2.2 g/dl (3.5-5.0); Alkaline Phosphatase 103 U/L (38-126); Total Protein 4.3 g/dl (6.3-8.2)
--- NOTE | 2024-10-12 09:46 | PTCARENOTE ---
Patient off unit for paracentesis at this time.
--- NOTE | 2024-10-12 11:33 | W.PN.HOSP.TC ---
Today's Communication/Plan
-
await onc
PT/OT
Assessment / Plan
Assessment / Plan
pt is an 84 year old female
Generalized Weakness/Fatigue--seen by PT/OT--recommending SNF-- agree likely multifactorial and due to underlying malignancy +/- chemo +/- hyponatremia, etc.
Acute on Chronic Hyponatremia--likely due to SIADH--grossly volume overloaded--fluid restrict--apprec renal--s/p Samsca--follow sodium
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
750ml--consult onc
Anemia of chronic disease--no signs of bleeding--Hgb is fairly stable compared to recent values- ? some worsening of anemia s/p chemo this week-- Check iron studies, B12, etc-- Follow H&H for changes.
DVT Prophylaxis: Lovenox
Code Status: Full
Anticipated Discharge: > 48 hours
Subjective/Interval History
-
Date of Service: October 12, 2024
pt feels 'bloated' despite paracentesis of 750mls off
Objective Data
-
Labs:
Laboratory Results
10/12/24 10/12/24
01:31 07:18
Sodium 125 L
Potassium 4.7
Chloride 100
Carbon Dioxide 25
BUN 55 H
Creatinine 0.9
Glucose 133 H
Calcium 7.6 L
Total Bilirubin 0.6
AST 34
ALT 16
Alkaline Phosphatase 103
Vital Signs:
max temp for 24 hours
10/12/24
10:15
Temp 99.8 F
Vital Signs
Temp Pulse Resp BP Pulse Ox
99.8 F 113 18 115/63 92
10/12/24 10:15 10/12/24 10:35 10/12/24 10:35 10/12/24 10:35 10/12/24 10:15
I&O
10/11/24 10/12/24 10/13/24
06:59 06:59 06:59
Intake Total 600 / 600
Balance 600 / 600
Review of Systems
-
All other systems: Reviewed and negative
Physical Exam
-
General: Appears Chronically Ill
HEENT: Normocephalic and Atraumatic; Negative Oxygen
Respiratory: Clear to Auscultation; Negative Wheezes, Rales, Rhonchi or Crackles
Cardiac: Regular Rhythm, S1/S2 and Tachycardic
GI: Soft, Nontender, Nondistended and Normal Bowel Sounds
Genito-urinary: Other (firm area in left lower quadrant)
Musculoskeletal: No Clubbing and No Cyanosis; Negative No Edema
Skin: Warm
Neuro: Awake
Psych: Calm
[2024-10-12] MEDS: LASIX 20 MG IV ×2 (11:40→17:48)
[2024-10-12] MEDS: LOW STRENGTH ASPIRIN 81 MG PO (11:41)
[2024-10-12] MEDS: ZOFRAN 4 MG IV (11:48)
[2024-10-12 11:51] LABS: Body Fluid Second Tech CMB
--- NOTE | 2024-10-12 12:18 | CM ---
Addendum entered by Ines Wallis 10/12/24 16:31:
POA to provide choices for SNF. POA form given to nursing.
Original Note:
Patient seen in [address] [place] [address] with physician. Patient pending medical treatment plan. Patient seen by therapy and recommending SNF, Patient states that she will think about options and review with CM. CM will continue to follow for discharge planning
needs.
Plan; SNF vs home with VN pending physician assessments
--- NOTE | 2024-10-12 12:18 | W.PN.NEPH.PH ---
Today's Communication / Plan
-
Samsca
Assessment/Plan
-
84-year-old female with past medical history of hypokalemia hypertension, SIADH, hyperlipidemia, remote history of skin melanoma, status post resection and no recurrence of disease over the last 10 years, last colonoscopy 3 year ago ovarian cancer
with peritoneal carcinomatosis newly diagnosed over the last couple months. Presents with weaknessAnd found to have a sodium of 124
Renal consultation for hyponatremia chronic and recurrent
Impression
CKD 3A baseline previously followed with
Hyponatremia 124 on admission.
SIADH diagnosed previous admission
peritoneal carcinomatosis, multiple peritoneal masses (largest 8 x 5 x 6 cm), ascites, small bilateral pleural effusion
Plan.
Samsca 30 mg today
Continue Lasix IV. May switch to p.o. as she approaches discharge
Follow BMP
-
-
Date of Service: October 12, 2024
CC / HPI / ROS
-
Chief Complaint:
Hyponatremia
History of Present Illness:
Sodium slightly better at 125 status post Samsca
Remains on Lasix with modest diuresis
Status post paracentesis 750 cc 10/12/2024
Blood pressure stable
Review of Systems:
No chest pain or shortness of breath
Labs
-
Labs:
WBC 6.2 10^3/uL (4.8-10.8) 10/11/24 01:44
RBC 2.81 10^6/uL (4.20-5.40) L 10/11/24 01:44
Hgb 8.4 g/dL (12.0-16.0) L 10/11/24 01:44
Hct 25.1 % (37.0-47.0) L 10/11/24 01:44
Plt Count 124 10^3/uL (130-400) L 10/11/24 01:44
Sodium 125 mmol/L (135-145) L 10/12/24 01:31
Potassium 4.7 mmol/L (3.5-5.1) 10/12/24 01:31
Chloride 100 mmol/L (98-107) 10/12/24 01:31
Carbon Dioxide 25 mmol/L (22-30) 10/12/24 01:31
BUN 55 mg/dl (7-17) H 10/12/24 01:31
Creatinine 0.9 mg/dL (0.6-1.0) 10/12/24 01:31
eGFR > 60.00 10/12/24 01:31
Glucose 133 mg/dl (70-99) H 10/12/24 01:31
Calcium 7.6 mg/dl (8.4-10.2) L 10/12/24 01:31
Albumin 2.2 g/dl (3.5-5.0) L 10/12/24 07:18
Physical Exam
-
Vital Signs:
Vital Signs
Temp Pulse Resp BP Pulse Ox
99.2 F 119 16 125/65 96
10/12/24 11:36 10/12/24 11:36 10/12/24 11:36 10/12/24 11:36 10/12/24 11:36
Cardiovascular:: Regular rate and rhythm
Respiratory:: Bilateral: CTA
Lung Excursion:: Normal
Abdomen:: Nontender and Soft
Bowel Sounds:: Normal
Extremity Edema:: None: Bilateral:
--- NOTE | 2024-10-12 13:24 | CON.ONC ---
Consultation
-
Date Consultation Requested: 10/12/24
Date Consultation Performed: 10/12/24
Requesting Provider: Dr. Vazquez
Performing Provider: Dr. Breaux
Reason for Consultation: Ovarian Cancer with Peritoneal Carcinomatosis and Ascites
Impression
Impression
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
due to a combination of treatment and ascites from her cancer.
Plan
Plan
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
-Most recent appointment with Dr. Sampson on 10/01 with plan for 3 cycles of Taxol, Carboplatin and Bevacizumab for a total of 3 cycles, followed by surgery, then 3 more cycles of chemotherapy followed by maintenance therapy
-S/p first round of chemotherapy on 10/06
-S/p several outpatient paracentesis including most recently on 10/01 and 10/05 with 2400cc and 1850cc fluid removed respectively
-S/p paracentesis today with 750mL fluid removed
-Overall, patient needs more social support for management of her disease including possible assisted living facility
-Continue PRN paracentesis as needed
-Will monitor
Generalized Weakness/Fatigue
-Likely multifactorial due to ovarian cancer, chemotherapy, hyponatremia, anemia, etc
-Following with PT/OT who are recommending SNF on discharge
-Patient was very weak today, unable to lift herself out of bed without assistance
-Continue PT/OT per primary care team
-Will monitor
Acute on Chronic Hyponatremia
-Baseline sodium level in the 130s, 124 on admission
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
-Continue fluid restriction
-Nephrology has been consulted by primary care team
-Continue to monitor sodium
-Will monitor
Anemia of Chronic Disease
-Secondary to ovarian cancer
-No current signs of bleed
-Continue to follow H&H
-Will monitor
Patient History
History of Present Illness
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 Sampson and was most recently seen at the office on 10/01/2024. At that time, the plan was for her to complete 3
cycles of Taxol, Carboplatin and Bevacizumab for a total of 3 cycles, followed by surgery, then 3 more cycles of chemotherapy followed by maintenance therapy. She also was planned for PRN paracentesis to relieve her ascites, with recent paracentesis
performed on 10/01 (2400cc removed) and one on 10/05 (1850cc removed). She successfully completed her first round of chemotherapy on 10/06/2024, but has been experiencing progressive weakness and fatigue. The weakness and fatigue began prior to
chemotherapy, but has been worsening since that time. In the ED, she was found to have hyponatremia with a sodium of 124 (Baseline 130s) and was volume overloaded. A paracentesis this morning yielded 750mL of ascitic fluid.
Today, she reports she came to the ED for a mixture of both weakness and feeling bloated. She has a standing PRN order for paracentesis which she is aware of, but because her symptoms worsened over the weekend she did not think there were openings
for paracentesis at that time. She lives at home with her to has Alzheimer�s Dementia. She does not have any adult children living near her, and relies on her friends to provide transportation. She has not previously thought about assisted
living to help her, but is receptive to receiving help.
Past-Medical/Surgical History
Ovarian Cancer with peritoneal carcinomatosis and ascites
Anemia of Chronic Disease
Chronic hyponatremia
Patient Medication
�Medication �Instructions �Recorded �Confirmed �Last Taken �Type
ondansetron 4 mg disintegrating 4 mg PO TIDPRN PRN nausea #12 tabs 11/19/14 10/11/24 09/06/24 08:00 Rx
tablet
aspirin 81 mg chewable tablet 81 mg PO DAILY Blood Clot 10/11/24 10/11/24 Unknown History
Prevention/Tx
Active Medications
Generic Name Dose Route Start Last Admin
Trade Name Freq PRN Reason Stop Dose Admin
Acetaminophen 650 mg 10/11/24 07:09
Acetaminophen 325 Mg Tablet PO 11/08/24 07:08
Q4HPRN PRN
Mild Pain / Temp > 101
Aspirin 81 mg 10/11/24 08:00 10/12/24 11:41
Aspirin 81 Mg Chewable Tablet PO 11/08/24 07:59 81 mg
DAILY LISA Administration
Enoxaparin Sodium 40 mg 10/11/24 18:00 10/11/24 16:42
Enoxaparin Sodium 40 Mg/0.4 Ml Syringe SC 11/08/24 17:59 40 mg
QPM LISA Administration
Furosemide 20 mg 10/11/24 08:00 10/12/24 11:40
Furosemide 20 Mg (10 Mg/Ml) 2 Ml Vial IV 11/08/24 07:59 20 mg
BID AT 0800,1600 LISA Administration
Ondansetron HCl 4 mg 10/11/24 07:09 10/12/24 11:48
Ondansetron 4 Mg/2 Ml Vial IV 11/08/24 07:08 4 mg
Q6HPRN PRN Administration
nausea and vomiting
Sodium Chloride 0 flush 10/11/24 08:00
Sodium Chloride 0.9% (Flush) Syringe IV 11/08/24 07:59
PER PROTOCOL LISA
Review of Systems
-
History Source: Patient
Constitutional: Reports Fatigue
GI: Reports Bloated
Neuro: Reports Weakness
Physical Exam
-
General: Well Developed, No Apparent Distress and Appears Chronically Ill
GI: Soft
Musculoskeletal: Edema, Right Lower Extrem and Edema, Left Lower Extrem
Skin: Warm and Dry
Psych: Calm
Labs
Lab Results
WBC 6.2 10^3/uL (4.8-10.8) 10/11/24 01:44
RBC 2.81 10^6/uL (4.20-5.40) L 10/11/24 01:44
Hgb 8.4 g/dL (12.0-16.0) L 10/11/24 01:44
Hct 25.1 % (37.0-47.0) L 10/11/24 01:44
MCV 89.3 fL (81.0-99.0) 10/11/24 01:44
MCH 29.9 pg (27.0-31.0) 10/11/24 01:44
MCHC 33.5 g/dL (33.0-37.0) 10/11/24 01:44
RDW 13.5 % (11.5-14.5) 10/11/24 01:44
Plt Count 124 10^3/uL (130-400) L 10/11/24 01:44
MPV 10.5 fL (7.4-10.4) H 10/11/24 01:44
Creatinine 0.9 mg/dL (0.6-1.0) 10/12/24 01:31
Vital Signs
Vital Signs
Temp Pulse Resp BP Pulse Ox
99.2 F 119 16 125/65 96
10/12/24 11:36 10/12/24 11:36 10/12/24 11:36 10/12/24 11:36 10/12/24 11:36
[2024-10-12] MEDS: SAMSCA 30 MG PO (13:44)
[2024-10-12] MEDS: LOVENOX 40 MG SC (17:48)
[2024-10-13] VITALS (9 sets, daily range): BP systolic 75–105; BP diastolic 42–64; BMI 22.8
--- NOTE | 2024-10-13 00:38 | W.PN.UPDATE ---
Update Note
Progress Note Update
RN reports HR staying in 120's. 113/66 96% RA 18 Patient seen and evaluated. HR tachy RR, EKG labs ordered
Patient lethargic easily arousable, denies any palpitations, chest pain at present. Abdomen distended predominantly RUQ at the paracentesis site which is not new per RN. + BS 4quad soft
Lungs diminished
EKG and lab results noted. Oncology is on board.
RN reported patient BP 70's/ 40's 91% RA 18 116
BP improved with Trendelenburg position 96/58 HR 116 96% 2L
Patient is drowsy, arousable, denies dizziness or lightheaded
[2024-10-13 01:20] LABS: Hematocrit 21.9 % (37.0-47.0); Hemoglobin 7.7 g/dL (12.0-16.0); Mean Corp Hgb Conc. 35.2 g/dL (33.0-37.0); Red Cell Dist. Width 13.3 % (11.5-14.5)
[2024-10-13 01:28] LABS: ALT (SGPT) 16 U/L (0-35); AST (SGOT) 32 U/L (14-36); Albumin 2.2 g/dl (3.5-5.0); Alkaline Phosphatase 96 U/L (38-126); Blood Urea Nitrogen 48 mg/dl (7-17); Calcium 7.3 mg/dl (8.4-10.2); Carbon Dioxide 25 mmol/L (22-30); Chloride 101 mmol/L (98-107); Estimated Creatinine Clearance 43 ml/min; Glucose 125 mg/dl (70-99); Magnesium 2.0 mg/dl (1.6-2.3); Potassium 4.0 mmol/L (3.5-5.1); Sodium 130 mmol/L (135-145); Total Protein 4.4 g/dl (6.3-8.2); eGFR > 60.00
[2024-10-13 01:44] LABS: Platelet Count 98 10^3/uL (130-400)
[2024-10-13 01:45] LABS: Mean Corpuscular Volume 88.0 fL (81.0-99.0)
--- NOTE | 2024-10-13 05:53 | PTCARENOTE ---
Patient noted to be drowsy and more forgetful compared to prior shift. Patient's HR noted to be consistently elevated in 110s-120s on telemonitor. STARBUCKS CLERK notified - AM labs drawn early - WBC of 0.6 - STARBUCKS CLERK notified of critical values and that labs
returned. EKG ordered and obtained - STARBUCKS CLERK notified of ECG findings. Patient with no new complaints. No new orders at this time.
During 0300 vitals - Patient w/ BP 76/47, HR 117. Patient drowsy - awakes to voice, but falls asleep quickly. Repeat BPs obtained - 79/49, HR 120 and 75/42, HR 118. STARBUCKS CLERK notified and to bedside to see patient. Patient's legs elevated and BP rechecked
- 96/58 w/ HR of 117. Patient's POX 90-93% on room air - 2L NC applied per STARBUCKS CLERK and patient's POX improved to 95-97% on 2L NC. Repeat CBC placed for AM. Repeat vitals obtained at 0530 - T 97.7 orally, HR 112, BP 91/56, RR 20, POX 94 on 2L. Patient
remains drowsy/lethargic and forgetful. STARBUCKS CLERK notified. No new orders at this time.
[2024-10-13 08:17] LABS: Hematocrit 24.2 % (37.0-47.0); Hemoglobin 8.1 g/dL (12.0-16.0); Mean Corp Hgb Conc. 33.5 g/dL (33.0-37.0); Mean Corpuscular Volume 89.3 fL (81.0-99.0); Platelet Count 93 10^3/uL (130-400); Red Cell Dist. Width 13.5 % (11.5-14.5)
--- NOTE | 2024-10-13 08:56 | W.PN.ONC ---
Addendum entered and electronically signed by Jaz Dial MD 10/13/24 09:29:
Returned to see patient a second time after she needed to use the bed warren
She expressed great frustration over dry mouth, just wants to drink
Discussed goals of care -- she wants to remain full code, wants to continue aggressive treatment for her cancer
She agreed that her isn't able to care for her at home in her current status. Will need SNF and possibly longer term placement
Original Note:
Today's Communication / Plan
-
Continue supportive care -- will benefit from PT and likely SNF placement
Mgmt of hyponatremia and fluid status per nephrology.
Paracenteses prn
Monitor CBC daily, s/p GCSF on 10/07. Would recommend pRBCs if hgb < 8
Anemia mostly from chemo/malignancy, but will check ferritin
Impression
Impression
ovarian cancer w/ peritoneal carcinomatosis, initiated chemo (carbo AUC 5, taxol 135mg/m2) 10/06 w/ GCSF on 10/07
recurrent ascites, s/p para x750cc on 10/12
hyponatremia
pancytopenia from chemo
deconditioning, weakness
Plan
Plan
Continue supportive care -- will benefit from PT and likely SNF placement
Mgmt of hyponatremia and fluid status per nephrology.
Paracenteses prn
Monitor CBC daily, s/p GCSF on 10/07. Would recommend pRBCs if hgb < 8
Anemia mostly from chemo/malignancy, but will check ferritin
Subjective/Objective
Subjective/Objective
Feeling a little better after paracentesis x750cc on 10/12
Still poor appetite, only ate ice cream yesterday
Vital Signs:
Vital Signs
Temp Pulse Resp BP Pulse Ox
99.7 F 111 18 90/44 97
10/13/24 07:18 10/13/24 07:18 10/13/24 07:18 10/13/24 07:42 10/13/24 07:18
Lab Results:
Laboratory Data
WBC 1.1 10^3/uL (4.8-10.8) L* 10/13/24 06:56
Hgb 8.1 g/dL (12.0-16.0) L 10/13/24 06:56
Plt Count 93 10^3/uL (130-400) L 10/13/24 06:56
eGFR > 60.00 10/13/24 00:55
Orders
Orders
Orders From Last 24 Hours
10/13/24 08:52
Add On- LAB Routine
[2024-10-13] MEDS: LASIX IV (10:10)
--- NOTE | 2024-10-13 10:11 | W.PN.NEPH.PH ---
Today's Communication / Plan
-
midodrine
Assessment/Plan
-
84-year-old female with past medical history of hypokalemia hypertension, SIADH, hyperlipidemia, remote history of skin melanoma, status post resection and no recurrence of disease over the last 10 years, last colonoscopy 3 year ago ovarian cancer
with peritoneal carcinomatosis newly diagnosed over the last couple months. Presents with weakness and found to have a sodium of 124
Renal consultation for hyponatremia chronic and recurrent
Impression
CKD 3A baseline previously followed with
Hyponatremia 124 on admission.
SIADH diagnosed previous admission
peritoneal carcinomatosis, multiple peritoneal masses (largest 8 x 5 x 6 cm), ascites, small bilateral pleural effusion
Pancytopenia
Plan.
No Samsca today
Switch to oral Lasix daily.
Follow BMP
Add midodrine for hypotension
Patient does not realize or does not want to understand that she has been declining over the last several weeks. She stated that the reason for admission this time was because her could no longer care for her adequately at home despite
multiple agencies helping as well. He says that she is likely going to end up in an assisted living. However despite that she insist that her current decline is due to medicine she is receiving in the hospital. There is clearly frustration
overall. I do not believe being stricter with sodium control will ultimately give her long-term benefit as she would unlikely to get Samsca as an outpatient, nor do I believe that she will take it given significant polyuria effect. Her urine
sodium was less than 5 suggesting that her response to Lasix is likely low and that much of her polyuria is due to Samsca. We may need to consider the addition of salt tablets with the Lasix to achieve some semblance of stability for her
hyponatremia as an outpatient.
-
-
Date of Service: October 13, 2024
CC / HPI / ROS
-
Chief Complaint:
Hyponatremia
History of Present Illness:
Sodium slightly better at 130 status post Samsca
Remains on Lasix with good diuresis
Status post paracentesis 750 cc 10/12/2024
Blood pressure low today
pancytopenic
Review of Systems:
No chest pain or shortness of breath
complains of dry mouth and polyuria
Labs
-
Labs:
WBC 1.1 10^3/uL (4.8-10.8) L* 10/13/24 06:56
RBC 2.71 10^6/uL (4.20-5.40) L 10/13/24 06:56
Hgb 8.1 g/dL (12.0-16.0) L 10/13/24 06:56
Hct 24.2 % (37.0-47.0) L 10/13/24 06:56
Plt Count 93 10^3/uL (130-400) L 10/13/24 06:56
Sodium 130 mmol/L (135-145) L 10/13/24 00:55
Potassium 4.0 mmol/L (3.5-5.1) 10/13/24 00:55
Chloride 101 mmol/L (98-107) 10/13/24 00:55
Carbon Dioxide 25 mmol/L (22-30) 10/13/24 00:55
BUN 48 mg/dl (7-17) H 10/13/24 00:55
Creatinine 0.9 mg/dL (0.6-1.0) 10/13/24 00:55
eGFR > 60.00 10/13/24 00:55
Glucose 125 mg/dl (70-99) H 10/13/24 00:55
Calcium 7.3 mg/dl (8.4-10.2) L 10/13/24 00:55
Albumin 2.2 g/dl (3.5-5.0) L 10/13/24 00:55
Physical Exam
-
Vital Signs:
Vital Signs
Temp Pulse Resp BP Pulse Ox
99.7 F 111 18 90/44 97
10/13/24 07:18 10/13/24 07:18 10/13/24 07:18 10/13/24 07:42 10/13/24 07:18
Cardiovascular:: Regular rate and rhythm
Respiratory:: Bilateral: Coarse
Lung Excursion:: Normal
Abdomen:: Nontender and Soft
Bowel Sounds:: Normal
Extremity Edema:: None: Bilateral:
--- NOTE | 2024-10-13 10:52 | CM ---
Patient seen at bedside with physician on . Patient stated that she did not feel she wanted to talk about next steps. CM will call to Patient POA to discuss options. Patient not medically appropriate for snf at this time per physician. CM
will continue to follow for discharge planning needs.
Plan; home with VN vs SNF.
[2024-10-13] MEDS: LASIX 20 MG PO (10:55)
[2024-10-13] MEDS: LOW STRENGTH ASPIRIN 81 MG PO (10:55)
--- NOTE | 2024-10-13 11:17 | W.PN.HOSP.TC ---
Today's Communication/Plan
-
ongoing monitoring
Assessment / Plan
Assessment / Plan
pt is an 84 year old female
Generalized Weakness/Fatigue--seen by PT/OT--recommending SNF-- agree likely multifactorial and due to underlying malignancy +/- chemo +/- hyponatremia, etc.
hypotension--starting midodrine by renal
Acute on Chronic Hyponatremia--likely due to SIADH--grossly volume overloaded--fluid restrict--apprec renal--s/p Samsca--follow sodium--up to 130
Ovarian Cancer with Peritoneal Carcinomatosis and Ascites--s/p 1 dose of chemo thus far (last Saturday) now with pancytopenia-- No N/V/D or other evident adverse effects-- Has been receiving weekly paracenteses (last on 10/05 for 1850cc)--received
paracentesis today 750ml--consult onc
Anemia of chronic disease--no signs of bleeding--Hgb is fairly stable compared to recent values- ? some worsening of anemia s/p chemo this week-- Check iron studies, B12, etc-- Follow H&H for changes.
DVT Prophylaxis: Lovenox
Code Status: Full
started comfort discussion but pt not receptive
Anticipated Discharge: > 48 hours
Subjective/Interval History
-
Date of Service: October 13, 2024
pt 'feels like she is getting sicker in the hospital'
Objective Data
-
Labs:
Laboratory Results
10/13/24 10/13/24
00:55 06:56
WBC 0.6 L* 1.1 L*
Hgb 7.7 L 8.1 L
Hct 21.9 L 24.2 L
Plt Count 98 L D 93 L
Sodium 130 L
Potassium 4.0
Chloride 101
Carbon Dioxide 25
BUN 48 H
Creatinine 0.9
Glucose 125 H
Calcium 7.3 L
Total Bilirubin 0.9
AST 32
ALT 16
Alkaline Phosphatase 96
Vital Signs:
max temp for 24 hours
10/13/24
07:18
Temp 99.7 F
Vital Signs
Temp Pulse Resp BP Pulse Ox
99.7 F 109 18 94/59 97
10/13/24 07:18 10/13/24 10:55 10/13/24 07:18 10/13/24 10:55 10/13/24 07:18
I&O
10/12/24 10/13/24 10/14/24
06:59 06:59 06:59
Intake Total 600 / 600 1200 / 1200
Balance 600 / 600 1200 / 1200
Review of Systems
-
All other systems: Reviewed and negative
Physical Exam
-
General: Well Developed, Well Nourished and No Apparent Distress
HEENT: Normocephalic, Atraumatic and Oxygen
Respiratory: Clear to Auscultation; Negative Wheezes or Rhonchi
Cardiac: Regular Rhythm; Negative Murmur
GI: Soft, Nontender, Nondistended and Normal Bowel Sounds
Musculoskeletal: No Clubbing, No Cyanosis and No Edema
Skin: Warm
Neuro: Awake
[2024-10-13 11:27] LABS: Ferritin 1010.0 ng/ml (11.1-264.0)
[2024-10-13 13:12] LABS: Absolute Neutrophils -Man Diff 0.5 10^3/uL (1.4-6.5); Platelets Checked Yes
[2024-10-13 13:15] LABS: Anisocytosis 1+; Hypochromasia 1+; Normal RBC Morphology No; Total Cells Counted 100
[2024-10-13] MEDS: LOVENOX 40 MG SC (17:44)
[2024-10-14] VITALS (8 sets, daily range): BP systolic 81–108; BP diastolic 51–74; BMI 22.5
--- NOTE | 2024-10-14 06:55 | W.PN.ONC2 ---
Today's Communication / Plan
-
Supportive care. Suspect will need SNF. Functional status will need to improve to get further chemoTx.
Impression
Impression
ovarian cancer w/ peritoneal carcinomatosis, initiated chemo (carbo AUC 5, taxol 135mg/m2) 10/06 w/ GCSF on 10/07
recurrent ascites, s/p para x750cc on 10/12
hyponatremia
pancytopenia from chemo
deconditioning, weakness
Plan
Plan
Continue supportive care -- will benefit from PT and likely SNF placement
Mgmt of hyponatremia and fluid status per nephrology.
Paracenteses prn
Monitor CBC daily, s/p GCSF on 10/07. Would recommend pRBCs if hgb < 8. WBC improving.
Anemia mostly from chemo/malignancy, ferritin elevated = 1010
Subjective/Objective
Chief Complaint
ACS Heme Onc
Subjective
Feels weak (exhausted). No other complaints.
Vital Signs:
Vital Signs
Temp Pulse Resp BP Pulse Ox
99.3 F 111 16 96/58 97
10/14/24 03:31 10/14/24 03:31 10/14/24 03:31 10/14/24 03:31 10/14/24 03:31
Lab Results:
Laboratory Data
WBC 1.1 10^3/uL (4.8-10.8) L* 10/13/24 06:56
Hgb 8.1 g/dL (12.0-16.0) L 10/13/24 06:56
Plt Count 93 10^3/uL (130-400) L 10/13/24 06:56
eGFR > 60.00 10/13/24 00:55
Laboratory Tests
09/08/24 10/13/24
06:50 00:55
Ferritin 1010.0 H
Tumor Marker AFP 7.87
Carcinoembryonic Ag 1.55
CA 19-9 Antigen Pending
CA 125 Antigen 2270 H
Physical Exam
Poor PS, frail
HEENT: No Jaundice
Cardiology: S1 and S2
Pulmonary: Clear
[2024-10-14 07:23] LABS: Blood Urea Nitrogen 50 mg/dl (7-17); Calcium 7.4 mg/dl (8.4-10.2); Carbon Dioxide 25 mmol/L (22-30); Chloride 104 mmol/L (98-107); Estimated Creatinine Clearance 35 ml/min; Glucose 135 mg/dl (70-99); Potassium 4.0 mmol/L (3.5-5.1); Sodium 133 mmol/L (135-145); eGFR 49.86
--- NOTE | 2024-10-14 07:40 | CM ---
Addendum entered by Ines Wallis 10/14/24 15:05:
Patient hospitalist called to POA medical and update provided.
Addendum entered by Ines Wallis 10/14/24 10:47:
Patient Medical Power of outpatient physical therapist Dr. Buster Catalan [phone] patient gave permission to add to contact list with CHILO Marley in room. Physician updated and advance directive placed on chart.
Addendum entered by Ines Wallis 10/14/24 09:58:
Physician spoke with patient POA to provide update via phone.
Addendum entered by Ines Wallis 10/14/24 09:48:
Patient seen at bedside in [address] [place] [address] with physician. Patient complaining of being weak. CM will continue to follow for discharge planning needs.
Plan; SNF; when medically appropriate
Original Note:
POA requested referrals to the following SNF options; [facility], [facility], [facility], [facility] and [facility]. CM sent referrals via all scripts. CM will continue to follow for discharge planning needs.
Plan; SNF
[2024-10-14 08:42] LABS: Hematocrit 23.3 % (37.0-47.0); Hemoglobin 7.6 g/dL (12.0-16.0); Mean Corp Hgb Conc. 32.6 g/dL (33.0-37.0); Mean Corpuscular Volume 90.0 fL (81.0-99.0); Red Cell Dist. Width 13.9 % (11.5-14.5)
[2024-10-14 08:43] LABS: Nucleated Red Blood Cells % 0 %; Platelet Count 78 10^3/uL (130-400)
[2024-10-14] MEDS: LOW STRENGTH ASPIRIN 81 MG PO (08:57)
[2024-10-14] MEDS: LASIX PO (08:59)
[2024-10-14 09:57] LABS: Absolute Neutrophils -Man Diff 3.3 10^3/uL (1.4-6.5)
[2024-10-14 09:58] LABS: Normal RBC Morphology Yes; Platelets Checked Yes; Total Cells Counted 100
--- NOTE | 2024-10-14 10:04 | W.PN.HOSP.TC ---
Addendum entered and electronically signed by Chikis Vazquez MD 10/14/24 17:22:
moderate protein calorie malnutrition
Original Note:
Today's Communication/Plan
-
spoke with POA
start NSS
consider blood transfusion
will order albumin for now
Assessment / Plan
Assessment / Plan
pt is an 84 year old female
Generalized Weakness/Fatigue-- agree likely multifactorial and due to underlying malignancy +/- chemo, and failure to thrive--not eating--will start NSS-- hyponatremia likely not a significant factor sine sodium level is now 133
hypotension--cont midodrine by renal--start NSS
Acute on Chronic Hyponatremia now with KATERYNA (creat 1.1, baseline 0.8-0.9)--likely due to SIADH--grossly volume overloaded--apprec renal--s/p Samsca--follow sodium--up to 133
Ovarian Cancer with Peritoneal Carcinomatosis and Ascites--s/p 1 dose of chemo thus far (last Saturday) now with pancytopenia-- No N/V/D or other evident adverse effects-- Has been receiving weekly paracenteses (last on 10/05 for 1850cc)--received
paracentesis today 750ml--apprec onc--spoke with POA listed on the chart--she would like an update from oncology
Anemia of chronic disease--no signs of bleeding--Hgb is fairly stable compared to recent values- ? some worsening of anemia s/p chemo this week-- Check iron studies, B12, etc-- Follow H&H for changes--HGB 7.6--consider blood transfusion--will give
IV albumin for now
DVT Prophylaxis: Lovenox
Code Status: Full--JAIROJean Paul Marley is NOT medical power of state attorney and cannot make the decision--updated her on clinical condition---~30 minutes
Anticipated Discharge: > 48 hours
Subjective/Interval History
-
Date of Service: October 14, 2024
pt without specific c/o--having a lot of diarrhea
Objective Data
-
Labs:
Laboratory Results
10/14/24 10/14/24
06:19 06:20
WBC 4.0 L
Hgb 7.6 L
Hct 23.3 L
Plt Count 78 L
Sodium 133 L
Potassium 4.0
Chloride 104
Carbon Dioxide 25
BUN 50 H
Creatinine 1.1 H
Glucose 135 H
Calcium 7.4 L
Vital Signs:
max temp for 24 hours
10/14/24
03:31
Temp 99.3 F
Vital Signs
Temp Pulse Resp BP Pulse Ox
98.0 F 116 16 83/55 95
10/14/24 07:19 10/14/24 07:19 10/14/24 07:19 10/14/24 07:19 10/14/24 07:19
I&O
10/13/24 10/14/24 10/15/24
06:59 06:59 06:59
Intake Total 1200 / 1200 600 / 600
Balance 1200 / 1200 600 / 600
Review of Systems
-
All other systems: Reviewed and negative
Physical Exam
-
General: Appears Chronically Ill
HEENT: Normocephalic, Atraumatic and Oxygen
Respiratory: Clear to Auscultation; Negative Wheezes, Rales, Rhonchi or Crackles
Cardiac: Regular Rhythm, S1/S2 and Tachycardic
GI: Soft, Nontender, Nondistended, Normal Bowel Sounds and Other (firm mass in abdomen)
Musculoskeletal: No Clubbing and No Cyanosis; Negative No Edema (bilateral LE edema)
Neuro: Awake
Psych: Calm
[2024-10-14] MEDS: NSS 1000 IV ×2 (10:12→19:56)
--- NOTE | 2024-10-14 10:34 | PTCARENOTE ---
Patient hypotensive. MD made aware. Midodrine administered. Held am lasixs per MD. Rechecked bp and is 81/51. MD on floor/ made aware. NSS at 100 mL/ hr started. Albumin ordered per MD.
[2024-10-14] MEDS: IMODIUM 2 MG PO (11:26)
[2024-10-14] MEDS: FLEXBUMIN 100 IV ×2 (11:26→19:44)
--- NOTE | 2024-10-14 12:43 | W.PN.NEPH.PH ---
Today's Communication / Plan
-
Continue fluid restriction and Lasix
Assessment/Plan
-
84-year-old female with past medical history of hypokalemia hypertension, SIADH, hyperlipidemia, remote history of skin melanoma, status post resection and no recurrence of disease over the last 10 years, last colonoscopy 3 year ago ovarian cancer
with peritoneal carcinomatosis newly diagnosed over the last couple months. Presents with weakness and found to have a sodium of 124
Renal consultation for hyponatremia chronic and recurrent
Impression
CKD 3A baseline previously followed with
Hyponatremia 124 on admission.
SIADH diagnosed previous admission
peritoneal carcinomatosis, multiple peritoneal masses (largest 8 x 5 x 6 cm), ascites, small bilateral pleural effusion
Pancytopenia
Plan.
No Samsca today
Switch to oral Lasix daily.
Follow BMP
Continue midodrine for hypotension
Sodium stable 133
-
-
Date of Service: October 14, 2024
CC / HPI / ROS
-
Chief Complaint:
Hyponatremia
History of Present Illness:
Sodium slightly better at 130 status post Samsca
Remains on Lasix with good diuresis
Status post paracentesis 750 cc 10/12/2024
Blood pressure low today
pancytopenic
Review of Systems:
No chest pain or shortness of breath
complains of dry mouth and polyuria
Labs
-
Labs:
WBC 4.0 10^3/uL (4.8-10.8) L 10/14/24 06:20
RBC 2.59 10^6/uL (4.20-5.40) L 10/14/24 06:20
Hgb 7.6 g/dL (12.0-16.0) L 10/14/24 06:20
Hct 23.3 % (37.0-47.0) L 10/14/24 06:20
Plt Count 78 10^3/uL (130-400) L 10/14/24 06:20
Sodium 133 mmol/L (135-145) L 10/14/24 06:19
Potassium 4.0 mmol/L (3.5-5.1) 10/14/24 06:19
Chloride 104 mmol/L (98-107) 10/14/24 06:19
Carbon Dioxide 25 mmol/L (22-30) 10/14/24 06:19
BUN 50 mg/dl (7-17) H 10/14/24 06:19
Creatinine 1.1 mg/dL (0.6-1.0) H 10/14/24 06:19
eGFR 49.86 10/14/24 06:19
Glucose 135 mg/dl (70-99) H 10/14/24 06:19
Calcium 7.4 mg/dl (8.4-10.2) L 10/14/24 06:19
Albumin 2.2 g/dl (3.5-5.0) L 10/13/24 00:55
Physical Exam
-
Vital Signs:
Vital Signs
Temp Pulse Resp BP Pulse Ox
97.6 F 113 16 90/57 98
10/14/24 11:08 10/14/24 11:08 10/14/24 11:08 10/14/24 11:08 10/14/24 11:08
Cardiovascular:: Regular rate and rhythm
Respiratory:: Bilateral: Coarse
Lung Excursion:: Normal
Abdomen:: Nontender and Soft
Bowel Sounds:: Normal
Extremity Edema:: +1: Bilateral:
--- NOTE | 2024-10-14 12:56 | W.PN.UPDATE ---
Update Note
Progress Note Update
I was notified that Ayaka Levi requested a call with updates. Ms. Sims is on pt HIPPA form. I called RAFAELA Mcbride with my contact phone#. Will await a return call to provide updates.
--- NOTE | 2024-10-14 15:20 | W.PN.UPDATE ---
Update Note
Progress Note Update
Spoke with Dr. Buster Catalan, medical power of deputy prosecuting attorney; [phone]--and updated him in regards to Aide's condition. He agreed with changing her CODE STATUS to DO NOT RESUSCITATE. He would like a palliative care consult. He also asked about
parenteral nutrition if she is not eating. I did explain to him that TPN would be contraindicated in somebody who is neutropenic because that would place her at risk for infection including fungal infections. I also explained that I did not
believe that it would help in the long run.
I offered to have any of the other medical providers call him for an update should he wish for that. He declined. He stated that he did not think that they would tell him anything different than I have. I explained that I will keep him in the
loop over the next couple days.
--- NOTE | 2024-10-14 15:36 | PN.CDI ---
CDI
- -
CDI:
Physician Documentation Request
Admit Date: 10/11/24 05:57
Dear Doctor George,
Clinical Indicators:
Patient admitted with failure to thrive; PMH includes ovarian cancer with peritoneal carcinomatosis; s/p chemotherapy.
10/14 note/assessment, -Subcutaneous Loss Orbital: Moderate Muscle Loss Buccal, Temporal: Moderate
-' 155.8 lbs from September 15, 2024 external medical summary; 145 lbs 4.554 oz on 10-02-
25, reflecting a loss of 10 lbs (6.4% wt change < 1 month)-significant'
-Due to wt loss, observations of fat/muscle loss and estimated intakes prior to admission
to be <75% estimated energy requirement, pt meeting criteria for moderate protein/
calorie malnutrition (ASPEN/ANDguidelines, chronic illness). '
Based on the above information and your assessment, which of the following most accurately represents the patient's nutritional status?
Moderate Protein Calorie Malnutrition
Other (please specify)
[place] Criteria (ACP Hospitalist 2017)
2 or more criteria must be present for either
non severe or severe malnutrition
Note that the criteria differs related to the
presence of an acute or chronic illness
Chronic Illness
Energy Intake Non Severe: <75% for >1 month
Severe: <75% for >1 month
Weight Loss Non Severe: 5% over 1 month
7.5% over 3 months
10% over 6 months
20% over 1 year
Severe: >5% over 1 month
>7.5% over 3 months
>10% over 6 months
>20% over 1 year
Body Fat Non Severe: Mild Loss
Severe: Severe Loss
Muscle Mass Non Severe: Mild Loss
Severe: Severe Loss
Fluid Accumulation Non Severe: Mild Accumulation
Severe: Moderate to severe
accumulation
Reduced Date Pitter Strength Non Severe: N/A
Severe: Measurably reduced
Additional criteria that can be used to Determine if Mild or Moderate Malnutrition (Merck Manual 2018)
Mild Moderate Severe
Albumin gm/dl <3.0 gm/dl <2.5 gm/dl <2.0 gm/dl
Pre Albumin mg/dl <15 gm/dl <10 mg/dl <5.0 mg/dl
BMI <18.5 <17 <16
Use of terms such as suspected, likely, concern for, or probable (associated with a specific diagnosis that is being evaluated, monitored, or treated as if it exists) are acceptable and can be coded in the inpatient setting, when documented at the
time of discharge.
Thank you,
MICHELLE Ivy RN
CDI Specialist
available via tiger text
Please use your independent medical judgment in providing your response.
[2024-10-14] MEDS: LOVENOX 40 MG SC (17:08)
--- NOTE | 2024-10-15 01:35 | W.PN.UPDATE ---
Update Note
Progress Note Update
-Reported by the nursing staff that the patient is not tolerating swallowing/ water and coughs with tsp of water.
-Will change the diet to NPO and patient currently on IVF
-speech eval.
-aspiration precautions.
[2024-10-15 03:21] VITALS: BP 102/53
[2024-10-15] MEDS: NSS 1000 IV (04:19)
[2024-10-15] MEDS: FLEXBUMIN 100 IV (04:20)
[2024-10-15 06:00] VITALS: BMI 23.1
[2024-10-15 07:24] VITALS: BP 93/56
[2024-10-15] MEDS: LASIX PO (07:57)
[2024-10-15] MEDS: LOW STRENGTH ASPIRIN PO (07:57)
--- NOTE | 2024-10-15 07:58 | W.PN.ONC ---
Today's Communication / Plan
-
Paracentesis PRN
Monitor CBC daily
Recommend pRBCs if Hemoglobin <8
Impression
Impression
Ovarian cancer with peritoneal carcinomatosis. [Initiated chemo (carbo AUC 5, taxol 135mg/m2) 10/06 with Granulocyte [place]-Stimulating Factor on 10/07]
Recurrent ascites, s/p para x750cc on 10/12
Hyponatremia
Pancytopenia (Likely secondary to chemotherapy)
Deconditioning
Weakness
Plan
Plan
Deconditioning and Weakness + Anemia
-Secondary to Ovarian cancer and treatment
-Patient has previously had to rely on friends to help her get to and from appointments.
-Continue Supportive Care. In the hospital, she will benefit from continued PT and would benefit from likely SNF placement on discharge
-Continue management of Hyponatremia as per Nephrology
-Continue Paracentesis PRN
-Continue to monitor CBC daily. Recommend pRBCs if Hemoglobin <8
-Will continue to follow
Subjective/Objective
Subjective/Objective
Patient was asleep when I arrived, pale and breathing heavily through her mouth. She awoke to talk, but was very sleepy and did not open her eyes during our conversation. She denied any pain or bloating, and reports just being sleepy. I spoke with
her nurse, who reports her hemoglobin this AM came back at 5 and was being redrawn. Yesterday she had experienced watery diarrhea with no sign of bleeding at that time.
A conversation was held yesterday between the primary team and the patient's medical POA. At that time, patient was made DNR and a request was made to speak to a Palliative Care provider. Earlier this morning, patient had also began to choke on
water she was drinking.
Vital Signs:
Vital Signs
Temp Pulse Resp BP Pulse Ox
98.1 F 109 16 93/56 95
10/15/24 07:24 10/15/24 07:24 10/15/24 07:24 10/15/24 07:24 10/15/24 07:24
Lab Results:
Laboratory Data
WBC Cancelled 10/15/24 06:23
Hgb Cancelled 10/15/24 06:23
Plt Count Cancelled 10/15/24 06:23
eGFR Cancelled 10/15/24 06:23
[2024-10-15 08:17] LABS: ALT (SGPT) 13 U/L (0-35); AST (SGOT) 24 U/L (14-36); Albumin 2.6 g/dl (3.5-5.0); Alkaline Phosphatase 71 U/L (38-126); Blood Urea Nitrogen 42 mg/dl (7-17); Calcium 7.9 mg/dl (8.4-10.2); Carbon Dioxide 22 mmol/L (22-30); Chloride 107 mmol/L (98-107); Estimated Creatinine Clearance 38 ml/min; Glucose 89 mg/dl (70-99); Magnesium 2.3 mg/dl (1.6-2.3); Potassium 3.4 mmol/L (3.5-5.1); Sodium 136 mmol/L (135-145); Total Protein 4.3 g/dl (6.3-8.2); eGFR 55.90
--- NOTE | 2024-10-15 08:19 | W.PN.ONC2 ---
Today's Communication / Plan
-
if goals remain restorative then will need to improve PS and nutritional status prior to receiving further antineoplastic therapy
Her OV 10/22 and treatment will be rescheduled until after hospital recovery -treatment will remain on hold if requires SNF at discharge
Impression
Impression
84 yo woman who started neoadjuvant carbo/taxol/bevacizumab on 10/06 for stage IIIC ovarian cancer. Received Rolvedon 10/07
Recurrent ascites, s/p para x750cc on 10/12
Hyponatremia
Pancytopenia (Likely secondary to chemotherapy) -WBC/ANC recovering
Deconditioning/Weakness -frail at baseline, dependent on friends for transport
aspiration
Plan
Plan
PT, OT, speech
management of Hyponatremia as per Nephrology
Paracentesis PRN
transfuse PRBC for Hgb <7 or as needed for sxs anemia
transfuse platelets for platelet <10, <20 if febrile, <50 if bleeding
avoid nsaids, antiplatelets, and anticoagulation for platelet count <50,000
monitor CBC daily.
monitor for bleeding
Subjective/Objective
Subjective
afebrile, 2L NC, no hypotension
not tolerating PO, concern for aspiration
Vital Signs:
Vital Signs
Temp Pulse Resp BP Pulse Ox
98.1 F 109 16 93/56 95
10/15/24 07:24 10/15/24 07:24 10/15/24 07:24 10/15/24 07:24 10/15/24 07:24
Lab Results:
Laboratory Data
WBC Cancelled 10/15/24 06:23
Hgb Cancelled 10/15/24 06:23
Plt Count Cancelled 10/15/24 06:23
eGFR 55.90 10/15/24 07:49
Physical Exam
poor PS, frail
HEENT: No Jaundice
Pulmonary: Other (unlabored)
[2024-10-15 08:40] LABS: Hematocrit 16.8 % (37.0-47.0); Hemoglobin 5.5 g/dL (12.0-16.0); Mean Corp Hgb Conc. 32.7 g/dL (33.0-37.0); Mean Corpuscular Volume 89.8 fL (81.0-99.0); Red Cell Dist. Width 14.1 % (11.5-14.5)
--- NOTE | 2024-10-15 08:45 | PTCARENOTE ---
Patient with critical hgb and hct this am. . made aware. Patient NPO. Speech consulted. Patient drowsy, arousable to verbal stimuli. BP soft. Patient tachy on monitor. MD aware.
--- NOTE | 2024-10-15 09:22 | PTOTSP ---
Dysphagia Evaluation
Patient is at an elevated risk for dysphagia given ovarian cancer with peritoneal carcinomatosis and ascites, recent chemo, moderate protein calorie malnutrition, and generalized weakness/lethargy. Consider plan below to optimize swallowing safety.
Recommend:
1. Regular, Thin Liquids
2. Medications whole in puree
3. Full supervision, partial assist
4. PO only when awake/alert, encourage self-feeding as able, small sips/bites, slow rate
5. Oral care 3x daily
6. Dysphagia f/u given risk for fluctuations in severity of dysphagia
[2024-10-15 09:36] LABS: Nucleated Red Blood Cells % 0.8 %
--- NOTE | 2024-10-15 09:48 | CM ---
Addendum entered by Ines Wallis 10/15/24 10:11:
referral to hospice, [facility] for assessment. POA for medical Dr. Buster Catalan spoke with physicians and now is recommending hospice assessment.
Original Note:
Patient seen at bedside with Palliative Care physician, Oncology physician given phone number for medical poa. CM will continue to follow for discharge planning needs.
Plan; pending medical treatment plan
--- NOTE | 2024-10-15 10:07 | W.PN.HOSP.TC ---
Today's Communication/Plan
-
consult for hospice placed
Assessment / Plan
Assessment / Plan
pt is an 84 year old female
I spoke at length with Dr. Rosas from palliative care. I believe (and she agrees with me) that patient is unable to make proper medical decisions despite being oriented. Both of those then spoke with Dr. Buster Catalan her medical power of collections attorney
(# [phone]) with an effort to discuss hospice. He told us before we even broached the subject that he spoke with the oncologist who also recommended hospice. Buster is in full agreement as are we. Consult was placed for hospice.
Generalized Weakness/Fatigue-- agree likely multifactorial and due to underlying malignancy +/- chemo, and failure to thrive--not eating--started NSS THEN made NPO overnight due to concern for aspiration-- hyponatremia likely not a significant
factor sine sodium level is now 133
hypotension--cont midodrine by renal--started NSS and gave albumin
Acute on Chronic Hyponatremia now with KATERYNA (creat 1.1, baseline 0.8-0.9)--likely due to SIADH--grossly volume overloaded--apprec renal--s/p Samsca--follow sodium--up to 136
Ovarian Cancer with Peritoneal Carcinomatosis and Ascites--s/p 1 dose of chemo thus far (last Saturday) now with pancytopenia and HGB 5.5-- No N/V or other evident adverse effects, no active bleeding-- Has been receiving weekly paracenteses (last on
10/05 for 1850cc)--received paracentesis Thursday 10/12 for 750ml--apprec onc--spoke with durable AND medical POA listed on the chart
Anemia of chronic disease--no signs of bleeding--Hgb is fairly stable compared to recent values- ? some worsening of anemia s/p chemo this week-- Check iron studies, B12, etc-- HGB 5.5---will give IV albumin for now
DVT Prophylaxis: Lovenox
Code Status: Full--POA Ayaka is NOT medical power of collections attorney and cannot make the decision--updated her on clinical condition---~30 minutes
Anticipated Discharge: Today
Subjective/Interval History
-
Date of Service: October 15, 2024
pt claims she has not been fed for days (not true, not eating for days--made NPO with concern for aspiration)
Objective Data
-
Labs:
Laboratory Results
10/15/24 10/15/24
06:23 07:49
WBC Cancelled 3.6 L
Hgb Cancelled 5.5 L* D
Hct Cancelled 16.8 L*
Plt Count Cancelled Pending
Sodium Cancelled 136
Potassium Cancelled 3.4 L
Chloride Cancelled 107
Carbon Dioxide Cancelled 22
BUN Cancelled 42 H
Creatinine Cancelled 1.0
Glucose Cancelled 89
Calcium Cancelled 7.9 L
Total Bilirubin Cancelled 0.9
AST Cancelled 24
ALT Cancelled 13
Alkaline Phosphatase Cancelled 71
Vital Signs:
max temp for 24 hours
10/14/24
23:45
Temp 98.8 F
Vital Signs
Temp Pulse Resp BP Pulse Ox
98.1 F 109 16 93/56 95
10/15/24 07:24 10/15/24 07:24 10/15/24 07:24 10/15/24 07:24 10/15/24 07:24
I&O
10/14/24 10/15/24 10/16/24
06:59 06:59 06:59
Intake Total 600 / 600 480 / 480
Balance 600 / 600 480 / 480
Review of Systems
-
All other systems: Reviewed and negative
Physical Exam
-
General: Appears Chronically Ill and Cachectic
HEENT: Normocephalic, Atraumatic and Oxygen
Respiratory: Clear to Auscultation; Negative Wheezes or Rhonchi
Cardiac: Regular Rhythm, S1/S2 and Tachycardic
GI: Soft, Nontender, Normal Bowel Sounds and Distended (firm masses not as prominent--concern for developing ascites)
Musculoskeletal: No Clubbing, No Cyanosis and No Edema
Neuro: Awake
[2024-10-15 10:20] LABS: Platelet Count 45 10^3/uL (130-400)
--- NOTE | 2024-10-15 10:47 | W.CON.PAL ---
Consultation
-
Date/Time Consultation Requested: 10/14/24
Date/Time Consultation Performed: 10/15/24
Requesting Provider: Dr Vazquez
Performing Provider: Dr Rosas
Reason for Consult: Goals of Care Discussion
Primary Diagnosis: Ovarian cancwe with peritoneal carcinomatosis
Consult Requested By: Patient's Physician
Reason for Admission
Illness Course/HPI
Megha is a 84-year-old female with Ovarian cancer complicated by peritoneal carcinomatosis and ascites requiring paracentesis who was admitted after presenting to the ER with with hx of 3 weeks of abdominal pain, bloating and anorexia. Pt past
medical history is significant for SIADH, hyperlipidemia, remote history of skin melanoma, status post resection and no recurrence of disease.
Since admission pt has been on a decline, she was noted with Aron, hyponatremia was treated with Na stable now but continues to have generalized Weakness, confusion, hypotension requiring midodrine. She received chemo about a week ago but shares that
she has gotten weaker and she feels like she just got worse with the treatments so far. Overnight she had to be made NPO as she had episodes of possible aspiration even with drinking water.
Palliative care consult was called by her physicians at request of POA to further discuss goals of care. At time of my visit she is awake, has intermittent confusion but was able to answer simple questions, she shared she � wanted to survive�, but
stated this was not � good quality of life�, when asked what her goal was she said � survive and beat the cancer�, she however cannot explain what she knows about her disease or what has been shared by her physicians, she is forgetful and cannot
remember what has been shared with her regarding possible outcomes of treatment, she shares she is not comfortable now � this is not comfort�, � I have been getting worse here�.
When I shared that some people would like to be comfortable and focus on things that make them comfortable, she is in agreement but states that she wants same but � wont give up because she has to fight the cancer�.
Symptom schulte she is unable to characterize her abdominal pain or grade it, she states she is very tired, thirsty, denies SOB but was being supplemented with oxygen via nasal canula, could not assess mood, sleep is poor.
Spoke with Dr Vazquez who shared her clinical trend, reviewed her charts and together we spoke to Pt POA Dr Goins with goal to share that we believed that we recommend focusing on comfort as a goal, Dr Goins shared that the oncologist had called
him and shared that they believe hospice was most appropriate.
Functional Status
PPS 30%
Goals of Care Discussion
-
Patient able to participate in discussion at time of visit: No
Patient's Information Preferences: Defer to Family
Patient Goals
'Beat cancer', see HPI for more.
Pain & Symptom Assessment
Patient Symptoms
Patient Symptoms: Pain (unable to rate, she was confused.) and Fatigue
Objective Data
-
Objective Data:
Vital Signs
Temp Pulse Resp BP Pulse Ox
98.1 F 109 16 93/56 95
10/15/24 07:24 10/15/24 07:24 10/15/24 07:24 10/15/24 07:24 10/15/24 07:24
Laboratory Results
10/15/24 07:49
10/15/24 07:49
Total Protein 4.3 g/dl (6.3-8.2) L 10/15/24 07:49
Albumin 2.6 g/dl (3.5-5.0) L 10/15/24 07:49
Free T4 1.30 ng/dl (0.78-2.19) 10/11/24 09:51
Palliative Performance Scale
Palliative Performance Scale:
PPS Level Ambulation Activity & Evidence of Disease Self Care Intake Conscious Level
100% Full Normal Activity & Work; Full Intake Full
No Evidence of Disease
90% Full Normal Activity & Work; Full Normal Full
Some Evidence of Disease
80% Full Normal Activity with Effort Full Normal or Full
Some Evidence of Disease Reduced
70% Reduced Unable Normal Job/Work Full Normal or Full
Significant Disease Reduced
60% Reduced Unable Hobby/Housework Occasional Normal or Full or Confusion
Significant Disease Assistance Reduced
50% Mainly Sit/Lie Unable to do Any Work Considerable Normal or Full or Confusion
Extensive Disease Assistance Req'd Reduced
40% Mainly in Bed Unable to do Most Activity Mainly Assistance Normal or Full or Drowsy;
Extensive Disease Reduced +/- Confusion
30% Totally Bed Unable to do Any Activity Total Care Normal or Full or Drowsy;
Bound Extensive Disease Reduced +/- Confusion
20% Totally Bed Bound Unable to do Any Activity Total Care Minimal to Full or Drowsy;
Extensive Disease Sips +/- Confusion
10% Totally Bed Bound Unable to do Any Activity Total Care Mouth Care Drowsy or Coma;
Extensive Disease Only +/- Confusion
0%
PPS Score Level:
30%
Palliative Performance Score Response
Palliative Performance Score Response: 30%
Physical Exam
-
General: Appears Chronically Ill and Other (Awake but lethargic, keeps eyes closed for most of visit, not fully alert, needs cuing to respond to questions and answers in short phrases.)
HEENT: Normocephalic, Atraumatic and Other (Dry mucous membranes)
Respiratory: Clear to Auscultation (anteriorly)
Cardiac: S1/S2
Peripheral Vascular: Edema, Right Lower Extremity and Edema, Left Lower Extremity
GI: Nontender and Distended
Skin: Warm and Other (thin, easily bruisable)
Neuro: Awake (able to rouse but very lethargic, confused, did not know year or time of day, but knows , President and where she is)
Psych: Confused
Assessment / Plan
-
Assessment/Plan:
84 YO F with advanced ovarian cancer with peritoneal carcinomatosis
GOC discussion with POA and Pt physician, I do not believe she has decision making capacity , i believe that with present performance status and recomendations from her oncologist Pt will benefit from referral to hospice
Hospice liason contacted for possible GIP admission considering her inability to take orally and hypodelirium which can escalate.
[2024-10-15 11:02] VITALS: BP 83/48
--- NOTE | 2024-10-15 12:10 | HOSPNOTE ---
Notified of hospice consult. After review, CHILO lives in [place] and would have to have consents mailed. Per Primary RN, appears imminent. Reviewed with CM, Attending, Hospice ENGINEERING TECH and Primary RN- plan to initiate comfort and reassess for GIP level
of care if patient survives to tomorrow. Everyone in agreement. Hospice available for support.
[2024-10-15] MEDS: MORPHINE SULFATE 1 MG IV ×2 (13:37→18:18)
[2024-10-15] MEDS: VALIUM INJECTION 2.5 MG IV (18:17)
[2024-10-15 19:00] VITALS: BP 86/50
[2024-10-16 07:50] VITALS: BP 67/44
[2024-10-16] MEDS: MORPHINE SULFATE 1 MG IV ×4 (07:52→11:23)
[2024-10-16] MEDS: TYLENOL/FEVERALL 650 MG RECTAL (07:54)
--- NOTE | 2024-10-16 10:53 | CM ---
Patient seen at bedside on 2 . Patient nurse contacted CM re patient condition and CM spoke with POA. Ayaka requested that CM update patient about her status and CM spoke with patient . RN to take patient to sit with
patient in room. CM will continue to follow for discharge planning needs
[2024-10-16] MEDS: ROBINUL 0.2 MG IV (10:57)
--- NOTE | 2024-10-16 11:18 | W.PN.HOSP.TC ---
Today's Communication/Plan
-
comfort measures
Assessment / Plan
Assessment / Plan
pt is an 84 year old female
10/16--pt actively dying--increased PRN morphine to Q30min PRN-- at bedside
10/15 I spoke at length with Dr. Rosas from palliative care. I believe (and she agrees with me) that patient is unable to make proper medical decisions despite being oriented. Both of those then spoke with Dr. Buster Catalan her medical power of
prosecuting attorney (# [phone]) with an effort to discuss hospice. He told us before we even broached the subject that he spoke with the oncologist who also recommended hospice. Buster is in full agreement as are we. Consult was placed for hospice.
Generalized Weakness/Fatigue-- agree likely multifactorial and due to underlying malignancy +/- chemo, and failure to thrive--not eating--started NSS THEN made NPO overnight due to concern for aspiration-- hyponatremia likely not a significant
factor sine sodium level is now 133
hypotension--cont midodrine by renal--started NSS and gave albumin
Acute on Chronic Hyponatremia now with KATERYNA (creat 1.1, baseline 0.8-0.9)--likely due to SIADH--grossly volume overloaded--apprec renal--s/p Samsca--follow sodium--up to 136
Ovarian Cancer with Peritoneal Carcinomatosis and Ascites--s/p 1 dose of chemo thus far (last Saturday) now with pancytopenia and HGB 5.5-- No N/V or other evident adverse effects, no active bleeding-- Has been receiving weekly paracenteses (last on
10/05 for 1850cc)--received paracentesis Thursday 10/12 for 750ml--apprec onc--spoke with durable AND medical POA listed on the chart
Anemia of chronic disease--no signs of bleeding--Hgb is fairly stable compared to recent values- ? some worsening of anemia s/p chemo this week-- Check iron studies, B12, etc-- HGB 5.5---will give IV albumin for now
DVT Prophylaxis: Lovenox
Code Status: DNR/DNI
Anticipated Discharge: Today
Subjective/Interval History
-
Date of Service: October 16, 2024
pt appears UNCOMFORTABLE-- at bedside with her
Objective Data
-
Vital Signs:
max temp for 24 hours
10/15/24
11:02
Temp 98.8 F
Vital Signs
Temp Pulse Resp BP Pulse Ox
101.5 F H 126 22 67/44 88
10/16/24 07:50 10/16/24 07:50 10/16/24 07:50 10/16/24 07:50 10/16/24 07:50
I&O
10/15/24 10/16/24 10/17/24
06:59 06:59 06:59
Intake Total 480 / 480 0 / 0
Balance 480 / 480 0 / 0
Review of Systems
-
Unable to obtain full review of systems at this time due to: Other (unresponsive and actively dying)
Physical Exam
-
General: Appears Chronically Ill
HEENT: Normocephalic and Atraumatic; Negative Moist Mucous Membranes
Respiratory: Rhonchi and Other (increased RR)
Cardiac: Regular Rhythm, S1/S2 and Tachycardic
GI: Soft, Nontender, Normal Bowel Sounds and Distended
Musculoskeletal: No Clubbing and No Cyanosis; Negative No Edema
Neuro: Negative Awake or Alert
Psych: Calm
[2024-10-16] MEDS: VALIUM INJECTION 2.5 MG IV (11:23)
--- NOTE | 2024-10-16 11:31 | HOSPNOTE ---
"Patient appears imminent at this time, patient was medicated for increased respirations. Patient is unresponsive at this time. We will continue to follow for support, patient will remain on comfort. The home that is selected is [facility] [phone]."
[2024-10-16] MEDS: MORPHINE SULFATE 2 MG IV (12:02)
[2024-10-16] MEDS: MORPHINE 100 IV (12:03)
--- NOTE | 2024-10-16 13:55 | W.PN.DEATH ---
Pronouncement of
-
Called to see patient to pronounce.
No spontaneous heart tones or respirations noted.
Patient not responsive to verbal stimuli.
Patient is pronounced .
Time of : 13:45
Date of : 10/16/24
Cause of : metastatic ovarian cancer
Family Notified: Yes ( at bedside)
--- NOTE | 2024-10-16 14:14 | CM ---
Patient and patient aware. CM will continue to follow for discharge planning needs.
Plan;.
--- NOTE | 2024-10-16 14:40 | PTCARENOTE ---
No heart tones noted. . made aware. at bedside.
--- NOTE | 2024-10-16 16:48 | W.DCSUMMARY ---
Discharge Summary
Discharge Data
Date of Admission: 10/11/24
Date of Discharge: 10/16/24
-
Pending Results: No
Hospital Course
Primary care physician : Libertad Ho
Principal Discharge diagnosis : Metastatic ovarian cancer
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
Hospital Course : Patient was an 84-year-old female with chronic hyponatremia and recent diagnosis of ovarian cancer who presented complaining of progressive weakness and fatigue. Patient had her first chemotherapy treatment on 10/06/2024.
Weakness started and she had the sense that her legs were giving out. She denied lightheadedness or dizziness. Patient was admitted.
Problem #1: Metastatic ovarian cancer. Patient was admitted and was initially seen in consultation by nephrology and oncology. Generalized weakness was thought to be due to the underlying malignancy as well as combination from chemotherapy.
Patient was placed on a fluid restriction in an attempt to improve her sodium level. She did receive 1 dose of Samsca. Unfortunately, patient continued to deteriorate despite having improved sodium into the 133-136 range. On October 12,
2024, patient had paracentesis for 750 mL of ascitic fluid. She still continued to remain 'bloated' after that. Patient deteriorated even further through her hospital stay to the point where her counts started dropping from the chemotherapy and
she became pancytopenic. Patient was not eating or drinking. I spoke to the patient's medical power of naval engineer, Dr. Buster Catalan. He had asked for a palliative care consult. It was the feeling of myself, palliative care, oncology, and
patient's primary doctor that hospice is appropriate. Hospice was consulted. Patient's medical power of naval engineer however refused to sign the patient onto hospice as [place]. She was placed on comfort measures. Patient required IV
morphine pushes for comfort. Patient's who has dementia, was present at the bedside when she passed. This was 13:45 on October 16, 2024. Patient's DURABLE POWER OF [employer] has been notified as well.
Time for discharge 31 minutes.
Discharge Plan
-
Patient Disposition:
Date/Time
Date/Time: 10/16/24 13:45
Discharge Date and Time
Discharge Date/Time: 10/16/24 13:45
Print Language: GUAMANIAN
== END 2024-10-16 13:45 | disposition expired | DRG 374 ==
LOC: 2 NORTH 05:57
PROVIDERS: Internal Medicine Hematology & Oncology; Nurse Practitioner Gerontology; Radiology Vascular & Interventional Radiology; Specialist; Student in an Organized Health Care Education/Training Program; ADMITTING PHYSICIAN Hospitalist; ATTENDING PHYSICIAN Internal Medicine; CONSULT PHYSICIAN Internal Medicine Hematology & Oncology; CONSULT PHYSICIAN Student in an Organized Health Care Education/Training Program; EMERGENCY PHYSICIAN Student in an Organized Health Care Education/Training Program; OTHER PHYSICIAN Internal Medicine Nephrology
PROC: 0W9G3ZZ Drainage of Peritoneal Cavity, Percutaneous Approach (ICD-10-PCS; 2024-10-12)
DX: C78.6 Secondary malignant neoplasm of retroperitoneum and peritoneum (principal); D61.810 Antineoplastic chemotherapy induced pancytopenia; C56.9 Malignant neoplasm of unspecified ovary; E22.2 Syndrome of inappropriate secretion of antidiuretic hormone; E44.0 Moderate protein-calorie malnutrition; N17.9 Acute kidney failure, unspecified; R18.0 Malignant ascites; Z51.5 Encounter for palliative care; Z66 Do not resuscitate; R53.1 Weakness; E86.0 Dehydration; I12.9 Hypertensive chronic kidney disease with stage 1 through stage 4 chronic kidney disease, or unspecified chronic kidney disease; N18.31 Chronic kidney disease, stage 3a; E78.00 Pure hypercholesterolemia, unspecified; E87.5 Hyperkalemia; R63.0 Anorexia; E87.6 Hypokalemia; D64.81 Anemia due to antineoplastic chemotherapy; E87.70 Fluid overload, unspecified; Y92.9 Unspecified place or not applicable; T45.1X5A Adverse effect of antineoplastic and immunosuppressive drugs, initial encounter; R62.7 Adult failure to thrive; D63.8 Anemia in other chronic diseases classified elsewhere; D33.3 Benign neoplasm of cranial nerves; I95.9 Hypotension, unspecified; Z96.653 Presence of artificial knee joint, bilateral; Z96.643 Presence of artificial hip joint, bilateral; Q23.81 Bicuspid aortic valve; Z63.6 Dependent relative needing care at home; Z79.82 Long term (current) use of aspirin; Z85.820 Personal history of malignant melanoma of skin; Z92.21 Personal history of antineoplastic chemotherapy; Z88.6 Allergy status to analgesic agent; Z88.5 Allergy status to narcotic agent; Z68.23 Body mass index [BMI] 23.0-23.9, adult
CPT/HCPCS: 49083; 80048; 80053; 80076; 82607; 82728; 82746; 83540; 83550; 83735; 83935; 84300; 84439; 84443; 85025; 85027; 87324; 87449; 89051; 92610; 93005; 96360; 97163; 97166; 99285; P9047